=== PATIENT | male | born 1940 | race Caucasian/White ===

== ENCOUNTER 2017-06-20 19:37 | Inpatient (IN) | payer MEDICARE, MEDICAID ==
[~2017-06-20] VITALS: Ht 182.9 cm; Wt 72.7 kg
[~2017-06-20 19:37] MED LIST: AMI25T PO; ASPI-612 PO; ATEN-27 PO; BAC10T PO; DONE5TAB3 PO; FLUT16SP10; FURO-150 PO; GABA-532 PO; GLIP10TA11 PO; GLU850T PO; KEN0.1O TP; LITH300T5 PO; MECL12.5 PO; METO10TA3 PO; NITR0.4T48 SL; OMEP-84 PO; ROSU10TA PO; SENN1TAB9 PO; TRAZ50TA54 PO
[2017-06-20 20:15] LABS: BASOPHILS % (AUTO) 0.1 % (0-1); EOSINOPHILS % (AUTO) 0 % (0-6); HEMATOCRIT 36.8 % (42.0-52.0); HEMOGLOBIN 12.2 g/dl (14.0-17.9); LYMPHOCYTES # (AUTO) 0.5 X10'3 (1.1-4.8); LYMPHOCYTES % (AUTO) 8.2 % (21-51); MEAN CORPUSCULAR HEMOGLOBIN 27.1 PG (27.0-31.0); MEAN CORPUSCULAR HGB CONC 33.2 % (33.0-36.5); MEAN CORPUSCULAR VOLUME 81.5 FL (78-98); MEAN PLATELET VOLUME 8.4 FL (7.4-10.4); MONOCYTES # (AUTO) 0.4 X10'3 (0-0.9); MONOCYTES % (AUTO) 6.2 % (2-12); NEUTROPHILS # (AUTO) 5.1 X10'3 (1.8-7.7); NEUTROPHILS % (AUTO) 85.5 % (42-75); PLATELET COUNT 183 X10'3 (140-440); RED BLOOD COUNT 4.51 X10'6 (4.70-6.10); RED CELL DISTRIBUTION WIDTH 15.1 % (11.5-14.5)
[2017-06-20 20:30] LABS: ALANINE AMINOTRANSFERASE 34 U/L (12-78); ALBUMIN 3.5 G/DL (3.4-5.0); ALBUMIN/GLOBULIN RATIO 0.8 (1.1-1.5); ALKALINE PHOSPHATASE 254 IU/L (46-116); ANION GAP 15 (8-16); ASPARTATE AMINO TRANSFERASE 25 U/L (10-37); BILIRUBIN,TOTAL 0.5 MG/DL (0.1-1.0); BLOOD UREA NITROGEN 14 MG/DL (7-18); BUN/CREATININE RATIO 10.4 (5.4-32.0); CALCIUM 9.1 MG/DL (8.5-10.1); CHLORIDE 98 MMOL/L (99-107); CREATININE 1.35 MG/DL (0.60-1.10); GLUCOSE 288 MG/DL (70-104); POTASSIUM 4.4 MMOL/L (3.5-5.1); SODIUM 137 MMOL/L (135-145); TOTAL CARBON DIOXIDE 24.2 MMOL/L (24-32); TOTAL PROTEIN 8.1 G/DL (6.4-8.2); eGFR 51 ML/MIN
[2017-06-20] MEDS ORDERED: temazepam 15mg capsule PO PRN (21:00)
[2017-06-20] MEDS ORDERED: INSU100V9 SQ (23:39)
[2017-06-21] MEDS ORDERED: magnesium hydroxide 30ml (MOM) UD suspension PO PRN
[2017-06-21] MEDS ORDERED: acetaminophen 325mg tablet PO PRN ×2
[2017-06-21] MEDS ORDERED: mag hydrox/Alum hydrox/simeth 30ml oral suspension PO PRN
[2017-06-21] MEDS ORDERED: ondansetron/PF 4mg/2ml inj IV PRN
[2017-06-21] MEDS ORDERED: HYDROmorphone inj. 0.5 MG/0.5 ML DISP.SYRIN IV PRN
[2017-06-21] MEDS: normal saline 1000ml 1,000 ML IV SCH ×3 (00:21→19:28)
[2017-06-21] MEDS ORDERED: amitriptyline 25mg tablet PO SCH (00:25)
[2017-06-21] MEDS ORDERED: meclizine 12.5mg tablet PO PRN (00:25)
[2017-06-21] MEDS ORDERED: MESSAGE TO PHARMACY PO ONE (00:25)
[2017-06-21] MEDS ORDERED: dextrose ORAL solution 15 GM/59 ML bottle PO PRN ×2 (00:25)
[2017-06-21] MEDS ORDERED: nitroGLYCERIN 0.4mg SUBLingual tab SL SCH (00:25)
[2017-06-21] MEDS ORDERED: triamcinolone acet 0.1% cream 15gm TP PRN (00:25)
[2017-06-21] MEDS ORDERED: dextrose 50%-water 50ml dispensing syringe IV PRN ×2 (00:25)
[2017-06-21] MEDS ORDERED: furosemide 20MG tablet PO PRN (00:25)
[2017-06-21] MEDS ORDERED: glucagon, human recombinant 1mg kit SUBCUT PRN (00:25)
[2017-06-21] MEDS ORDERED: sennosides/docusate sodium tablet PO PRN (00:25)
[2017-06-21 05:53] LABS: BASOPHILS % (AUTO) 0.2 % (0-1); EOSINOPHILS % (AUTO) 0 % (0-6); HEMATOCRIT 33.9 % (42.0-52.0); HEMOGLOBIN 11.4 g/dl (14.0-17.9); LYMPHOCYTES # (AUTO) 0.8 X10'3 (1.1-4.8); LYMPHOCYTES % (AUTO) 17.5 % (21-51); MEAN CORPUSCULAR HEMOGLOBIN 27.4 PG (27.0-31.0); MEAN CORPUSCULAR HGB CONC 33.7 % (33.0-36.5); MEAN CORPUSCULAR VOLUME 81.3 FL (78-98); MEAN PLATELET VOLUME 8.1 FL (7.4-10.4); MONOCYTES # (AUTO) 0.5 X10'3 (0-0.9); NEUTROPHILS # (AUTO) 3.1 X10'3 (1.8-7.7); NEUTROPHILS % (AUTO) 70.3 % (42-75); PLATELET COUNT 146 X10'3 (140-440); RED BLOOD COUNT 4.16 X10'6 (4.70-6.10); RED CELL DISTRIBUTION WIDTH 14.4 % (11.5-14.5); WHITE BLOOD COUNT 4.4 X10'3 (4.5-11.0)
[2017-06-21 06:37] LABS: ALANINE AMINOTRANSFERASE 30 U/L (12-78); ALBUMIN 2.9 G/DL (3.4-5.0); ALBUMIN/GLOBULIN RATIO 0.7 (1.1-1.5); ALKALINE PHOSPHATASE 212 IU/L (46-116); ANION GAP 12 (8-16); ASPARTATE AMINO TRANSFERASE 24 U/L (10-37); BILIRUBIN,TOTAL 0.5 MG/DL (0.1-1.0); BLOOD UREA NITROGEN 17 MG/DL (7-18); BUN/CREATININE RATIO 14.3 (5.4-32.0); CALCIUM 8.4 MG/DL (8.5-10.1); CHLORIDE 101 MMOL/L (99-107); CREATININE 1.19 MG/DL (0.60-1.10); GLUCOSE 284 MG/DL (70-104); LIPASE 55 U/L (73-393); POTASSIUM 4.2 MMOL/L (3.5-5.1); SODIUM 136 MMOL/L (135-145); TOTAL CARBON DIOXIDE 22.9 MMOL/L (24-32); eGFR 59 ML/MIN
[2017-06-21] MEDS: pantoprazole 40mg Tablet.DR PO SCH (07:30)
[2017-06-21 07:36] LABS: HEMOGLOBIN A1C 8.3 % (4.5-6.2)
[2017-06-21] MEDS: baclofen 10mg tablet PO SCH ×2 (07:51→21:53)
[2017-06-21] MEDS: lithium carbonate 150mg capsule PO SCH ×3 (07:52→21:53)
[2017-06-21] MEDS: atorvastatin 20mg tablet PO SCH (07:52)
[2017-06-21] MEDS: gabapentin 300mg capsule PO SCH ×3 (07:52→21:53)
[2017-06-21] MEDS: atenolol 25mg tablet PO SCH (07:53)
[2017-06-21] MEDS: aspirin 81mg tab.chew PO SCH (07:53)
[2017-06-21] MEDS: metoclopramide 10mg tablet PO SCH ×4 (07:53→21:53)
[2017-06-21] MEDS ORDERED: enoxaparin 40mg/0.4ml syringe SUBCUT SCH (08:00)
[2017-06-21] MEDS ORDERED: non-formulary drug (Omeprazole* (Prilosec*) 20 MG) PO SCH (08:00)
[2017-06-21] MEDS ORDERED: ROSUVASTATIN CALCIUM 10 MG PO SCH (08:00)
[2017-06-21] MEDS: piperacillin/tazo 3.375gm/50ml 50 ML IV SCH ×3 (08:03→19:28)
[2017-06-21] MEDS ORDERED: hydrALAZINE 20mg/ml inj. IV PRN (08:35)
[2017-06-21] MEDS: insulin Lispro (HumaLOG) vial - multi-dose SQ SCH (13:54)
[2017-06-21 18:04] VITALS: BP 140/62
[2017-06-21 19:00] VITALS: BP 144/83
[2017-06-21] MEDS: traZODone 50mg tablet PO SCH (21:53)
[2017-06-21] MEDS ORDERED: insulin glargine (Lantus) pen - multi-dose SQ ONE (22:48)
[2017-06-21] MEDS ORDERED: insulin regular, human vial - multi-dose ONE (22:48)
[2017-06-21] MEDS: insulin glargine (Lantus) pen - multi-dose SQ SCH (23:10)
[2017-06-22] VITALS (17 sets, daily range): BP systolic 103–165; BP diastolic 40–70
[2017-06-22] MEDS: piperacillin/tazo 3.375gm/50ml 50 ML IV SCH ×4 (02:33→21:33)
[2017-06-22] MEDS: normal saline 1000ml 1,000 ML IV SCH ×2 (06:02→15:58)
[2017-06-22 07:16] LABS: BASOPHILS % (AUTO) 0.4 % (0-1); EOSINOPHILS % (AUTO) 0.7 % (0-6); HEMATOCRIT 32.3 % (42.0-52.0); HEMOGLOBIN 10.8 g/dl (14.0-17.9); LYMPHOCYTES # (AUTO) 0.8 X10'3 (1.1-4.8); LYMPHOCYTES % (AUTO) 29.2 % (21-51); MEAN CORPUSCULAR HEMOGLOBIN 27.1 PG (27.0-31.0); MEAN CORPUSCULAR HGB CONC 33.3 % (33.0-36.5); MEAN CORPUSCULAR VOLUME 81.4 FL (78-98); MONOCYTES # (AUTO) 0.3 X10'3 (0-0.9); MONOCYTES % (AUTO) 10.5 % (2-12); NEUTROPHILS # (AUTO) 1.7 X10'3 (1.8-7.7); NEUTROPHILS % (AUTO) 59.2 % (42-75); PLATELET COUNT 137 X10'3 (140-440); RED BLOOD COUNT 3.97 X10'6 (4.70-6.10); RED CELL DISTRIBUTION WIDTH 14.1 % (11.5-14.5); WHITE BLOOD COUNT 2.9 X10'3 (4.5-11.0)
[2017-06-22] MEDS: pantoprazole 40mg Tablet.DR PO SCH (07:24)
[2017-06-22] MEDS: baclofen 10mg tablet PO SCH ×2 (07:24→21:34)
[2017-06-22] MEDS: atorvastatin 20mg tablet PO SCH (07:24)
[2017-06-22] MEDS: aspirin 81mg tab.chew PO SCH (07:25)
[2017-06-22] MEDS: lithium carbonate 150mg capsule PO SCH ×3 (07:25→21:35)
[2017-06-22] MEDS: gabapentin 300mg capsule PO SCH ×3 (07:25→21:34)
[2017-06-22] MEDS: metoclopramide 10mg tablet PO SCH ×4 (07:25→21:34)
[2017-06-22 07:36] LABS: ALANINE AMINOTRANSFERASE 26 U/L (12-78); ALBUMIN 2.5 G/DL (3.4-5.0); ALBUMIN/GLOBULIN RATIO 0.6 (1.1-1.5); ALKALINE PHOSPHATASE 182 IU/L (46-116); ANION GAP 12 (8-16); ASPARTATE AMINO TRANSFERASE 31 U/L (10-37); BILIRUBIN,TOTAL 0.4 MG/DL (0.1-1.0); BLOOD UREA NITROGEN 19 MG/DL (7-18); BUN/CREATININE RATIO 16.1 (5.4-32.0); CALCIUM 8.1 MG/DL (8.5-10.1); CHLORIDE 104 MMOL/L (99-107); CREATININE 1.18 MG/DL (0.60-1.10); GLUCOSE 242 MG/DL (70-104); POTASSIUM 3.8 MMOL/L (3.5-5.1); SODIUM 139 MMOL/L (135-145); TOTAL CARBON DIOXIDE 23.2 MMOL/L (24-32); TOTAL PROTEIN 6.4 G/DL (6.4-8.2); eGFR 60 ML/MIN
[2017-06-22] MEDS: atenolol 25mg tablet PO SCH (07:38)
[2017-06-22] MEDS: insulin Lispro (HumaLOG) vial - multi-dose SQ SCH ×2 (10:18→12:56)
[2017-06-22 11:31] LABS: PLATELET ESTIMATE DECREASED; POLYCHROMASIA FEW; TOTAL CELLS COUNTED 100
[2017-06-22 11:32] LABS: ANISOCYTOSIS FEW; TEAR DROP CELLS 1+
[2017-06-22 11:33] LABS: ELLIPTOCYTES FEW; SPHEROCYTES FEW
[2017-06-22 11:34] LABS: SMUDGE CELLS FEW
[2017-06-22] MEDS ORDERED: fentaNYL/PF 50MCG/1 ML 2ML syringe ONE (15:22)
[2017-06-22] MEDS ORDERED: MIDAZolam 5mg/ml 2ml vial ONE (15:22)
[2017-06-22] MEDS ORDERED: meperidine/PF 100mg/ml syringe ONE (15:22)
[2017-06-22] MEDS ORDERED: levoFLOXACIN-Levaquin 500mg/D5 100 ML IV ONE ×2 (15:23→15:24)
[2017-06-22] MEDS ORDERED: LIDOcaine Viscous 15ml cup ONE (15:23)
[2017-06-22] MEDS ORDERED: glucagon, human recombinant 1mg kit ONE (15:23)
[2017-06-22] MEDS ORDERED: diphenhydrAMINE 50 mg/ml inj ONE (15:23)
[2017-06-22] MEDS ORDERED: iohexol 300 MG/1 ML 50ml polymer ONE (15:24)
[2017-06-22] MEDS: lactobacillus rhamnosus 10,000 MMU CELLS/CAPSULE PO SCH (21:34)
[2017-06-22] MEDS: traZODone 50mg tablet PO SCH (21:34)
[2017-06-22] MEDS: insulin glargine (Lantus) pen - multi-dose SQ SCH (21:39)
[2017-06-23] MEDS: normal saline 1000ml 1,000 ML IV SCH ×2 (02:37→11:58)
[2017-06-23] MEDS: piperacillin/tazo 3.375gm/50ml 50 ML IV SCH ×3 (02:37→14:52)
[2017-06-23 05:36] LABS: BASOPHILS % (AUTO) 0.3 % (0-1); EOSINOPHILS % (AUTO) 1.5 % (0-6); HEMATOCRIT 32.7 % (42.0-52.0); HEMOGLOBIN 10.9 g/dl (14.0-17.9); LYMPHOCYTES % (AUTO) 33.4 % (21-51); MEAN CORPUSCULAR HGB CONC 33.5 % (33.0-36.5); MEAN CORPUSCULAR VOLUME 80.7 FL (78-98); MEAN PLATELET VOLUME 8.1 FL (7.4-10.4); MONOCYTES # (AUTO) 0.3 X10'3 (0-0.9); MONOCYTES % (AUTO) 8.3 % (2-12); NEUTROPHILS # (AUTO) 1.8 X10'3 (1.8-7.7); NEUTROPHILS % (AUTO) 56.5 % (42-75); PLATELET COUNT 123 X10'3 (140-440); RED BLOOD COUNT 4.06 X10'6 (4.70-6.10); RED CELL DISTRIBUTION WIDTH 14.3 % (11.5-14.5); WHITE BLOOD COUNT 3.1 X10'3 (4.5-11.0)
[2017-06-23 05:55] LABS: ALANINE AMINOTRANSFERASE 23 U/L (12-78); ALBUMIN 2.4 G/DL (3.4-5.0); ALBUMIN/GLOBULIN RATIO 0.6 (1.1-1.5); ALKALINE PHOSPHATASE 172 IU/L (46-116); ANION GAP 10 (8-16); ASPARTATE AMINO TRANSFERASE 29 U/L (10-37); BILIRUBIN,TOTAL 0.4 MG/DL (0.1-1.0); BLOOD UREA NITROGEN 17 MG/DL (7-18); BUN/CREATININE RATIO 12.5 (5.4-32.0); CALCIUM 8.2 MG/DL (8.5-10.1); CHLORIDE 108 MMOL/L (99-107); CREATININE 1.36 MG/DL (0.60-1.10); GLUCOSE 204 MG/DL (70-104); POTASSIUM 3.6 MMOL/L (3.5-5.1); SODIUM 142 MMOL/L (135-145); TOTAL CARBON DIOXIDE 24.4 MMOL/L (24-32); TOTAL PROTEIN 6.4 G/DL (6.4-8.2); eGFR 51 ML/MIN
[2017-06-23 07:00] VITALS: BP 125/42
[2017-06-23] MEDS: lithium carbonate 150mg capsule PO SCH ×2 (09:03→13:49)
[2017-06-23] MEDS: atenolol 25mg tablet PO SCH (09:04)
[2017-06-23] MEDS: lactobacillus rhamnosus 10,000 MMU CELLS/CAPSULE PO SCH (09:04)
[2017-06-23] MEDS: gabapentin 300mg capsule PO SCH ×2 (09:06→13:49)
[2017-06-23] MEDS: atorvastatin 20mg tablet PO SCH (09:07)
[2017-06-23] MEDS: metoclopramide 10mg tablet PO SCH ×3 (09:08→17:46)
[2017-06-23] MEDS: aspirin 81mg tab.chew PO SCH (09:09)
[2017-06-23] MEDS: pantoprazole 40mg Tablet.DR PO SCH (09:10)
[2017-06-23] MEDS: baclofen 10mg tablet PO SCH (09:10)
[2017-06-23] MEDS: HYDROcodone/acetaminophen 5mg/325mg tablet PO PRN ×2 (09:14→15:19)
[2017-06-23] MEDS: insulin Lispro (HumaLOG) vial - multi-dose SQ SCH ×2 (09:23→13:54)
[2017-06-23 10:55] VITALS: BP 132/44
[2017-06-23] MEDS ORDERED: LACT1CAP26 PO (12:51)
[2017-06-23 14:00] VITALS: BP 143/56
[2017-06-23] MEDS ORDERED: atenolol 50mg tablet PO SCH (14:48)
== END 2017-06-23 18:49 | disposition home health service (06) | DRG 446 ==
LOC: ER 19:37 → ED HOLD 23:58 → SUR 3N 06-21 17:58 → OBSVTOIN 06-22 10:00
PROVIDERS: ADMIT Hospitalist; ATTEND Family Medicine
PROC: 0DJ08ZZ Inspection of Upper Intestinal Tract, Via Natural or Artificial Opening Endoscopic (ICD-10-PCS; principal; 2017-06-22)
DX: K80.50 Calculus of bile duct without cholangitis or cholecystitis without obstruction (principal); E11.9 Type 2 diabetes mellitus without complications; F03.90 Unspecified dementia, unspecified severity, without behavioral disturbance, psychotic disturbance, mood disturbance, and anxiety; E78.00 Pure hypercholesterolemia, unspecified; I10 Essential (primary) hypertension; F31.9 Bipolar disorder, unspecified; E78.5 Hyperlipidemia, unspecified; I25.10 Atherosclerotic heart disease of native coronary artery without angina pectoris; K21.9 Gastro-esophageal reflux disease without esophagitis; G89.29 Other chronic pain; R06.02 Shortness of breath; Z60.2 Problems related to living alone; Z66 Do not resuscitate; I25.2 Old myocardial infarction; Z90.49 Acquired absence of other specified parts of digestive tract; Z95.1 Presence of aortocoronary bypass graft; Z79.4 Long term (current) use of insulin; Z79.84 Long term (current) use of oral hypoglycemic drugs
CPT/HCPCS: 36415; 71045; 74176; 74181; 76001; 76700; 80053; 82948; 83036; 83605; 83690; 83880; 84484; 85025; 87040; 93005; 97110; 97116; 97162; G0378; G0500; J1200; J1610; J1650; J1815; J1956; J2175; J2250; J2543; J3010; J7030; J8597; Q9967

== ENCOUNTER 2017-12-12 04:59 | Emergency (ER) | payer MEDICARE, MEDICAID ==
[~2017-12-12] VITALS: Ht 182.9 cm; Wt 72.4 kg
[~2017-12-12 04:59] MED LIST changes: -DONE5TAB3 PO; -FLUT16SP10; +INSU100V9 SQ; +LACT1CAP26 PO
[2017-12-12] MEDS ORDERED: potassium Cl 20 mEq SR tablet PO STA (05:19)
[2017-12-12] MEDS ORDERED: lactulose 20gm/30ml cup PO ONE (05:20)
[2017-12-12] MEDS ORDERED: magnesium hydroxide 30ml (MOM) UD suspension PO ONE (05:20)
[2017-12-12] MEDS ORDERED: normal saline 1000ML IV soln IVB ONE (05:20)
[2017-12-12] MEDS ORDERED: POLY255P2 PO (05:27)
[2017-12-12 06:01] LABS: BASOPHILS % (AUTO) 0.4 % (0-1); EOSINOPHILS # (AUTO) 0.1 X10'3 (0-0.9); EOSINOPHILS % (AUTO) 2.2 % (0-6); HEMATOCRIT 31.9 % (42.0-52.0); HEMOGLOBIN 10.1 g/dl (14.0-17.9); LYMPHOCYTES # (AUTO) 0.7 X10'3 (1.1-4.8); LYMPHOCYTES % (AUTO) 14.8 % (21-51); MEAN CORPUSCULAR HEMOGLOBIN 22.8 PG (27.0-31.0); MEAN CORPUSCULAR HGB CONC 31.7 % (33.0-36.5); MEAN CORPUSCULAR VOLUME 71.9 FL (78-98); MEAN PLATELET VOLUME 8.3 FL (7.4-10.4); MONOCYTES # (AUTO) 0.2 X10'3 (0-0.9); MONOCYTES % (AUTO) 5.1 % (2-12); NEUTROPHILS # (AUTO) 3.7 X10'3 (1.8-7.7); NEUTROPHILS % (AUTO) 77.5 % (42-75); PLATELET COUNT 224 X10'3 (140-440); RED BLOOD COUNT 4.44 X10'6 (4.70-6.10); RED CELL DISTRIBUTION WIDTH 17.6 % (11.5-14.5); WHITE BLOOD COUNT 4.8 X10'3 (4.5-11.0)
[2017-12-12 06:29] VITALS: BP 131/51
[2017-12-12 07:00] LABS: ALANINE AMINOTRANSFERASE 59 U/L (12-78); ALBUMIN 3.2 G/DL (3.4-5.0); ALBUMIN/GLOBULIN RATIO 0.8 (1.1-1.5); ALKALINE PHOSPHATASE 289 IU/L (46-116); ANION GAP 8 (8-16); ASPARTATE AMINO TRANSFERASE 104 U/L (10-37); BILIRUBIN,TOTAL 0.8 MG/DL (0.1-1.0); BLOOD UREA NITROGEN 21 MG/DL (7-18); BUN/CREATININE RATIO 14.3 (5.4-32.0); CALCIUM 8.6 MG/DL (8.5-10.1); CHLORIDE 106 MMOL/L (99-107); CREATININE 1.47 MG/DL (0.60-1.10); GLUCOSE 133 MG/DL (70-104); POTASSIUM 4.3 MMOL/L (3.5-5.1); SODIUM 140 MMOL/L (135-145); TOTAL CARBON DIOXIDE 25.7 MMOL/L (24-32); TOTAL PROTEIN 7.3 G/DL (6.4-8.2); eGFR 46 ML/MIN
== END 2017-12-12 08:13 | disposition home or self-care (01) ==
LOC: ER 05:00
DX: K59.00 Constipation, unspecified (principal); R10.84 Generalized abdominal pain; R10.33 Periumbilical pain; I25.10 Atherosclerotic heart disease of native coronary artery without angina pectoris; E78.00 Pure hypercholesterolemia, unspecified; I10 Essential (primary) hypertension; I25.2 Old myocardial infarction; K21.9 Gastro-esophageal reflux disease without esophagitis; E11.9 Type 2 diabetes mellitus without complications; G89.29 Other chronic pain; Z90.49 Acquired absence of other specified parts of digestive tract; Z98.890 Other specified postprocedural states; Z95.1 Presence of aortocoronary bypass graft; Z79.82 Long term (current) use of aspirin; Z79.899 Other long term (current) drug therapy
CPT/HCPCS: 36415; 80053; 85025; 99284; J7030

== ENCOUNTER 2020-10-24 20:56 | Emergency (ER) | payer MEDICARE, MEDICAID ==
[~2020-10-24] VITALS: Ht 177.8 cm; Wt 84.1 kg
[~2020-10-24 20:56] MED LIST changes: +POLY255P19 PO; -ROSU10TA PO; +ROSU10TA2 PO
[2020-10-24 21:20] VITALS: BP 139/59
[2020-10-26] MEDS ORDERED: FLO0.4C (22:57)
== END 2020-10-24 23:09 | disposition home or self-care (01) ==
LOC: ER 20:56
DX: F41.9 Anxiety disorder, unspecified (principal); I25.10 Atherosclerotic heart disease of native coronary artery without angina pectoris; E78.00 Pure hypercholesterolemia, unspecified; I10 Essential (primary) hypertension; I25.2 Old myocardial infarction; K21.9 Gastro-esophageal reflux disease without esophagitis; E11.9 Type 2 diabetes mellitus without complications; G89.29 Other chronic pain; F31.9 Bipolar disorder, unspecified; Z90.49 Acquired absence of other specified parts of digestive tract; Z98.890 Other specified postprocedural states; Z60.2 Problems related to living alone; Z79.82 Long term (current) use of aspirin; Z79.4 Long term (current) use of insulin; Z79.899 Other long term (current) drug therapy
CPT/HCPCS: 99283

== ENCOUNTER 2020-10-26 21:13 | Inpatient (IN) | payer MEDICARE, MEDICAID ==
[~2020-10-26] VITALS: Ht 182.9 cm; Wt 90.9 kg
[2020-10-26] MEDS ORDERED: LITH450T2 PO (22:57)
[2020-10-26] MEDS ORDERED: GABA-530 PO (22:57)
[2020-10-26] MEDS ORDERED: CARV3.122 PO (22:57)
[2020-10-26] MEDS ORDERED: HYDR-3686 PO (22:57)
[2020-10-26] MEDS ORDERED: FLO0.4C PO (22:57)
[2020-10-26] MEDS ORDERED: LITH300C PO (22:57)
[2020-10-26] MEDS ORDERED: FURO20TA4 PO (22:57)
[2020-10-26] MEDS ORDERED: SITA100T15 PO (22:57)
[2020-10-26] MEDS ORDERED: ATOR10TA70 PO (22:57)
[2020-10-26] MEDS ORDERED: DOCU-345 PO (22:57)
[2020-10-26] MEDS ORDERED: MECL-159 PO (22:57)
[2020-10-26] MEDS ORDERED: LIT300C PO (23:11)
--- NOTE | 2020-10-26 23:12 | NUR ---
Phone number for needle process felt goods supervisorStar, is
[2020-10-26 23:29] LABS: EOSINOPHILS # (AUTO) 0.3 X10'3 (0-0.9); HEMOGLOBIN 10.8 g/dl (14.0-17.9); LYMPHOCYTES # (AUTO) 1.2 X10'3 (1.1-4.8); MEAN CORPUSCULAR VOLUME 80.8 FL (78-98); WHITE BLOOD COUNT 5.4 X10'3 (4.5-11.0)
[2020-10-26 23:30] LABS: BASOPHILS % (AUTO) 0.3 % (0-1); EOSINOPHILS % (AUTO) 5.4 % (0-6); HEMATOCRIT 34.5 % (42.0-52.0); LYMPHOCYTES % (AUTO) 23.3 % (21-51); MEAN CORPUSCULAR HEMOGLOBIN 25.4 PG (27.0-31.0); MEAN CORPUSCULAR HGB CONC 31.4 g/dL (33.0-36.5); MEAN PLATELET VOLUME 8.5 FL (7.4-10.4); MONOCYTES # (AUTO) 0.5 X10'3 (0-0.9); MONOCYTES % (AUTO) 8.9 % (2-12); NEUTROPHILS # (AUTO) 3.3 X10'3 (1.8-7.7); NEUTROPHILS % (AUTO) 62.1 % (42-75); PLATELET COUNT 152 X10'3 (140-440); RED BLOOD COUNT 4.27 X10'6 (4.70-6.10); RED CELL DISTRIBUTION WIDTH 17.1 % (11.5-14.5)
[2020-10-26 23:39] LABS: ALANINE AMINOTRANSFERASE 14 U/L (12-78); ALBUMIN/GLOBULIN RATIO 0.8 (1.1-1.5); ALKALINE PHOSPHATASE 170 IU/L (46-116); ANION GAP 4 (8-16); ASPARTATE AMINO TRANSFERASE 17 U/L (10-37); BILIRUBIN,TOTAL 0.4 MG/DL (0.1-1.0); BLOOD UREA NITROGEN 23 MG/DL (7-18); BUN/CREATININE RATIO 16.2 (5.4-32.0); CALCIUM 8.5 MG/DL (8.5-10.1); CHLORIDE 106 MMOL/L (99-107); CREATININE 1.42 MG/DL (0.60-1.10); GLUCOSE 125 MG/DL (70-104); SODIUM 139 MMOL/L (135-145); TOTAL CARBON DIOXIDE 28.9 MMOL/L (24-32); TOTAL PROTEIN 6.9 G/DL (6.4-8.2); eGFR 48 ML/MIN
[2020-10-26 23:40] LABS: POTASSIUM 4.5 MMOL/L (3.5-5.1)
[2020-10-26 23:48] LABS: ANISOCYTOSIS 1+; BURR CELLS 1+; ELLIPTOCYTES FEW; PLATELET ESTIMATE NORMAL; TEAR DROP CELLS FEW
[2020-10-27 00:37] LABS: CLARITY,URINE CLEAR (Clear); COLOR,URINE YELLOW (Yellow); GLUCOSE, URINE NEGATIVE (Neg); KETONES,URINE NEGATIVE (Neg); LEUKOCYTE ESTERASE ,URINE NEGATIVE (Neg); NITRITES, URINE NEGATIVE (Neg); OCCULT BLOOD,URINE NEGATIVE (Neg); PROTEIN,URINE NEGATIVE (Neg)
[2020-10-27 00:38] LABS: UA COLLECTION TYPE OTHER
[2020-10-27] MEDS ORDERED: potassium Cl 40MEQ/1/2NS 520ml 520 ML IV PRN ×2 (03:00)
[2020-10-27] MEDS ORDERED: ondansetron/PF 4mg/2ml inj IV PRN (03:00)
[2020-10-27] MEDS ORDERED: potassium Cl 20 mEq SR tablet PO PRN ×2 (03:00)
[2020-10-27] MEDS ORDERED: mag hydrox/Alum hydrox/simeth 30ml oral suspension PO PRN (03:00)
[2020-10-27] MEDS ORDERED: dextrose ORAL solution 15 GM/59 ML bottle PO PRN ×2 (03:10)
[2020-10-27] MEDS ORDERED: dextrose 50%-water 50ml dispensing syringe IV PRN ×2 (03:10)
[2020-10-27] MEDS ORDERED: glucagon, human recombinant 1mg kit SUBCUT PRN (03:10)
[2020-10-27] MEDS ORDERED: MESSAGE TO PHARMACY PO ONE (03:10)
[2020-10-27 04:25] VITALS: BP 118/49
[2020-10-27 04:48] LABS: HEMOGLOBIN A1C 7.3 % (4.5-6.2)
[2020-10-27] MEDS ORDERED: aspirin 81mg tablet.DR PO SCH (08:00)
[2020-10-27] MEDS ORDERED: LITHIUM CARBONATE PO SCH (08:00)
[2020-10-27] MEDS: heparin, porcine 5000 units/ml vial SQ SCH ×2 (08:00→20:00)
[2020-10-27] MEDS ORDERED: atenolol 25mg tablet PO SCH (08:00)
[2020-10-27] MEDS: K and/or MAG REPLACEMENT MC SCH ×3 (08:00→20:00)
[2020-10-27 08:05] VITALS: BP 109/78
[2020-10-27] MEDS: atorvastatin 10mg tablet PO SCH (08:43)
[2020-10-27] MEDS: furosemide 20MG tablet PO SCH (08:43)
[2020-10-27] MEDS: docusate sod 100mg capsule PO SCH ×2 (08:43→21:47)
--- NOTE | 2020-10-27 08:49 | NUR ---
2 RN skin assessment completed upon patient's arrival to unit with Tommy AGUIRRE. Patient's skin was found to be clear aside from a small scab to the left lower arm and diffuse bruising to both UE. Immediately afterwards I answered another patient's call light, and was unable to have Tommy AGUIRRE sign off on the 2 RN skin check before she left. Addendum: 10/27/20 at 0852 by Terence Rodgers RN Amended: Links added.
--- NOTE | 2020-10-27 08:52 | NUR ---
Problems reprioritized. Patient report given, questions answered & plan of care reviewed with Viridiana AGUIRRE.
[2020-10-27] MEDS ORDERED: aspirin 81mg tablet.DR PO ONE (09:02)
--- NOTE | 2020-10-27 09:21 | NUR ---
Noted pt with A1c 7.3%, well controlled for age, DM education not warranted at this time. Will continue to follow. Addendum: 10/27/20 at [address] Amended: Links added.
[2020-10-27] MEDS ORDERED: heparin, porcine 5000 units/ml vial SQ ONE ×2 (10:10→21:50)
[2020-10-27] MEDS ORDERED: magnesium Cl slow-release 64mg tablet PO PRN (10:40)
[2020-10-27] MEDS ORDERED: magnesium 4gm in 100ml NS 100 ML IV PRN (10:40)
[2020-10-27 11:00] VITALS: BP 136/40
[2020-10-27] MEDS: pneumococcal 23-VAL P-sac vacc 25 mcg/0.5ml vial IMVAC ONE ×2 (13:55→17:23)
[2020-10-27] MEDS ORDERED: PRAZ1CAP5 PO (13:59)
[2020-10-27] MEDS ORDERED: NAPR-996 PO (13:59)
--- NOTE | 2020-10-27 15:08 | NUR ---
PAGER ID: [phone] MESSAGE: [id number] [place]. Can I put a sitter on him for being Compulsive, jumping out of bed, confused. Viridiana 0083
--- NOTE | 2020-10-27 15:09 | NUR ---
DM consult: Patient's A1c has already been addressed, see below. Noted pt with A1c 7.3%, well controlled for age, DM education not warranted at this time. Will continue to follow. Addendum: 10/27/20 at [address] Amended: Links added.
--- NOTE | 2020-10-27 17:26 | NUR ---
Patient refused pneumonia vax, states he had it last year and the flu vax as well.
--- NOTE | 2020-10-27 18:23 | NUR ---
Report given to NOC shift.
[2020-10-27 19:00] VITALS: BP 148/46
[2020-10-27] MEDS ORDERED: lithium carbonate 300mg SR tablet (LithoBID) PO SCH (21:00)
[2020-10-27] MEDS: carVEDilol 3.125mg tablet PO SCH (21:47)
[2020-10-27] MEDS: tamsulosin 0.4mg capsule PO SCH (21:47)
[2020-10-27] MEDS: prazosin 1mg capsule PO SCH (21:47)
[2020-10-28] VITALS: BP 130/62
[2020-10-28 06:33] LABS: BASOPHILS # (AUTO) 0.1 X10'3 (0-0.2); BASOPHILS % (AUTO) 0.3 % (0-1); EOSINOPHILS % (AUTO) 0 % (0-6); HEMATOCRIT 35.2 % (42.0-52.0); HEMOGLOBIN 11.5 g/dl (14.0-17.9); LYMPHOCYTES # (AUTO) 0.2 X10'3 (1.1-4.8); LYMPHOCYTES % (AUTO) 1.3 % (21-51); MEAN CORPUSCULAR HEMOGLOBIN 29.8 PG (27.0-31.0); MEAN CORPUSCULAR HGB CONC 32.8 g/dL (33.0-36.5); MEAN PLATELET VOLUME 10.2 FL (7.4-10.4); MONOCYTES # (AUTO) 0.2 X10'3 (0-0.9); MONOCYTES % (AUTO) 1.4 % (2-12); NEUTROPHILS # (AUTO) 15.1 X10'3 (1.8-7.7); PLATELET COUNT 169 X10'3 (140-440); RED BLOOD COUNT 3.87 X10'6 (4.70-6.10); RED CELL DISTRIBUTION WIDTH 15.9 % (11.5-14.5); WHITE BLOOD COUNT 15.6 X10'3 (4.5-11.0)
--- NOTE | 2020-10-28 06:35 | NUR ---
Problems reprioritized. Patient report given, questions answered & plan of care reviewed with Rosetta AGUIRRE. Addendum: 10/28/20 at 0636 by Ayleen Zazueta RN Amended: Links added.
[2020-10-28 06:43] LABS: ALANINE AMINOTRANSFERASE 37 U/L (12-78); ALBUMIN 2.1 G/DL (3.4-5.0); ALBUMIN/GLOBULIN RATIO 0.4 (1.1-1.5); ALKALINE PHOSPHATASE 162 IU/L (46-116); ANION GAP 5 (8-16); ASPARTATE AMINO TRANSFERASE 30 U/L (10-37); BILIRUBIN,TOTAL 0.3 MG/DL (0.1-1.0); BLOOD UREA NITROGEN 27 MG/DL (7-18); BUN/CREATININE RATIO 22.9 (5.4-32.0); CALCIUM 7.8 MG/DL (8.5-10.1); CHLORIDE 100 MMOL/L (99-107); CREATININE 1.18 MG/DL (0.60-1.10); GLUCOSE 158 MG/DL (70-104); MAGNESIUM 2.1 MG/DL (1.5-2.4); PHOSPHORUS 3.9 MG/DL (2.3-4.5); POTASSIUM 5.4 MMOL/L (3.5-5.1); SODIUM 135 MMOL/L (135-145); TOTAL CARBON DIOXIDE 29.9 MMOL/L (24-32); TOTAL PROTEIN 6.9 G/DL (6.4-8.2); eGFR 59 ML/MIN
--- NOTE | 2020-10-28 06:52 | NUR ---
Problems reprioritized. Patient report given, questions answered & plan of care reviewed with TIMOTHY Abbasi.
[2020-10-28] MEDS: aspirin 81mg tablet.DR PO SCH (08:00)
[2020-10-28] MEDS: K and/or MAG REPLACEMENT MC SCH ×2 (08:00→20:00)
[2020-10-28 10:29] VITALS: BP 112/36
[2020-10-28] MEDS: carVEDilol 3.125mg tablet PO SCH ×2 (10:30→20:19)
[2020-10-28] MEDS: tamsulosin 0.4mg capsule PO SCH (10:30)
[2020-10-28] MEDS: atorvastatin 10mg tablet PO SCH (10:30)
[2020-10-28] MEDS: furosemide 20MG tablet PO SCH (10:30)
[2020-10-28] MEDS: docusate sod 100mg capsule PO SCH ×2 (10:30→20:19)
[2020-10-28] MEDS: heparin, porcine 5000 units/ml vial SQ SCH ×2 (13:21→20:19)
[2020-10-28] MEDS: acetaminophen 325mg tablet PO PRN (13:52)
[2020-10-28] MEDS: lithium carbonate 150mg capsule PO SCH ×3 (13:53→21:13)
[2020-10-28] MEDS ORDERED: PERFLUTREN PROTEIN-A MICROSPHR (Optison) 0.22 MG/ML 3ML VIAL IV ONE (14:20)
--- NOTE | 2020-10-28 15:01 | NUR ---
PAGER ID: [phone] MESSAGE: [id number]: [place]: May pt have pain meds, only has Tylenol. Reports severe pain to back. Tylenol had no effect -park [phone]
--- NOTE | 2020-10-28 16:56 | NUR ---
PAGER ID: [phone] MESSAGE: [place] 58B- Pt unable to sit still for MRI. It was not done. Thank you. Jazmyne quiros [facility] [id number]
--- NOTE | 2020-10-28 17:03 | NUR ---
PAGER ID: [phone] MESSAGE: [id number]: [place]: Pt unable to complete MRI scan, pt cannot stay still. -park [phone]
--- NOTE | 2020-10-28 17:08 | NUR ---
New orders from Maureen for 1mg ativan IV ONCE prior to MRI scan
[2020-10-28] MEDS ORDERED: LORazepam 2 mg/ml vial IV ONE (17:10)
[2020-10-28 18:00] VITALS: BP 144/75
--- NOTE | 2020-10-28 18:20 | NUR ---
Patient in room [facility] 358B. I have received report from TIMOTHY Sargent and had the opportunity to ask questions and assume patient care.
--- NOTE | 2020-10-28 18:29 | NUR ---
Problems reprioritized. Patient report given, questions answered & plan of care reviewed with TIMOTHY George.
[2020-10-28] MEDS: prazosin 1mg capsule PO SCH (20:19)
[2020-10-29] MEDS ORDERED: AMIT10TA6 PO (01:43)
[2020-10-29] MEDS ORDERED: LORazepam 2 mg/ml vial IV ONE ×2 (01:55)
--- NOTE | 2020-10-29 06:37 | NUR ---
Problems reprioritized. Patient report given, questions answered & plan of care reviewed with TIMOTHY Kemp.
[2020-10-29] MEDS: K and/or MAG REPLACEMENT MC SCH ×2 (08:00→20:00)
[2020-10-29 11:10] LABS: BASOPHILS % (AUTO) 0.5 % (0-1); EOSINOPHILS # (AUTO) 0.2 X10'3 (0-0.9); EOSINOPHILS % (AUTO) 3.4 % (0-6); HEMATOCRIT 37.2 % (42.0-52.0); HEMOGLOBIN 11.6 g/dl (14.0-17.9); LYMPHOCYTES # (AUTO) 1.3 X10'3 (1.1-4.8); LYMPHOCYTES % (AUTO) 23.2 % (21-51); MEAN CORPUSCULAR HEMOGLOBIN 24.9 PG (27.0-31.0); MEAN CORPUSCULAR HGB CONC 31.3 g/dL (33.0-36.5); MEAN CORPUSCULAR VOLUME 79.6 FL (78-98); MONOCYTES # (AUTO) 0.4 X10'3 (0-0.9); MONOCYTES % (AUTO) 6.8 % (2-12); NEUTROPHILS # (AUTO) 3.8 X10'3 (1.8-7.7); NEUTROPHILS % (AUTO) 66.1 % (42-75); PLATELET COUNT 204 X10'3 (140-440); RED BLOOD COUNT 4.67 X10'6 (4.70-6.10); RED CELL DISTRIBUTION WIDTH 16.9 % (11.5-14.5); WHITE BLOOD COUNT 5.7 X10'3 (4.5-11.0)
[2020-10-29 11:26] LABS: ALANINE AMINOTRANSFERASE 19 U/L (12-78); ALBUMIN 3.3 G/DL (3.4-5.0); ALBUMIN/GLOBULIN RATIO 0.8 (1.1-1.5); ALKALINE PHOSPHATASE 174 IU/L (46-116); ANION GAP 10 (8-16); ASPARTATE AMINO TRANSFERASE 29 U/L (10-37); BILIRUBIN,TOTAL 0.5 MG/DL (0.1-1.0); BLOOD UREA NITROGEN 19 MG/DL (7-18); BUN/CREATININE RATIO 14.3 (5.4-32.0); CALCIUM 8.7 MG/DL (8.5-10.1); CHLORIDE 104 MMOL/L (99-107); CREATININE 1.33 MG/DL (0.60-1.10); GLUCOSE 140 MG/DL (70-104); MAGNESIUM 2.2 MG/DL (1.5-2.4); PHOSPHORUS 3.2 MG/DL (2.3-4.5); SODIUM 141 MMOL/L (135-145); TOTAL PROTEIN 7.5 G/DL (6.4-8.2); eGFR 52 ML/MIN
[2020-10-29] MEDS: docusate sod 100mg capsule PO SCH ×2 (11:27→20:38)
[2020-10-29] MEDS: heparin, porcine 5000 units/ml vial SQ SCH ×2 (11:28→20:39)
[2020-10-29] MEDS: atorvastatin 10mg tablet PO SCH (11:28)
[2020-10-29] MEDS: furosemide 20MG tablet PO SCH (11:28)
[2020-10-29] MEDS: carVEDilol 3.125mg tablet PO SCH ×2 (11:28→20:38)
[2020-10-29] MEDS: lithium carbonate 150mg capsule PO SCH ×3 (11:31→17:52)
[2020-10-29] MEDS: aspirin 81mg tablet.DR PO SCH (11:31)
--- NOTE | 2020-10-29 14:15 | NUR ---
Patient sleeping for the first time, allowing to sleep. Addendum: 10/29/20 at 1415 by Viridiana Jasso RN Amended: Links added.
[2020-10-29 15:00] VITALS: BP 156/84
[2020-10-29 18:00] VITALS: BP_SYST 136; BP_SYST 157; BP_DIAS 64; BP_DIAS 84
--- NOTE | 2020-10-29 18:33 | NUR ---
Report given to Doris AGUIRRE
[2020-10-29] MEDS: prazosin 1mg capsule PO SCH (20:38)
[2020-10-29] MEDS: tamsulosin 0.4mg capsule PO SCH (20:38)
[2020-10-30] VITALS: BP_SYST 148; BP_SYST 157; BP_DIAS 59; BP_DIAS 84
[2020-10-30] MEDS: ziprasidone IM 20mg inj **IM only IM PRN (02:58)
[2020-10-30] MEDS: morphine 2 MG/ML inj. syringe IV PRN ×2 (02:59→14:32)
[2020-10-30 05:51] LABS: BASOPHILS % (AUTO) 0.4 % (0-1); EOSINOPHILS # (AUTO) 0.2 X10'3 (0-0.9); EOSINOPHILS % (AUTO) 3.5 % (0-6); HEMOGLOBIN 11.9 g/dl (14.0-17.9); LYMPHOCYTES % (AUTO) 18.5 % (21-51); MEAN CORPUSCULAR HEMOGLOBIN 25.5 PG (27.0-31.0); MEAN CORPUSCULAR HGB CONC 32.1 g/dL (33.0-36.5); MEAN CORPUSCULAR VOLUME 79.4 FL (78-98); MEAN PLATELET VOLUME 7.8 FL (7.4-10.4); MONOCYTES # (AUTO) 0.5 X10'3 (0-0.9); MONOCYTES % (AUTO) 8.8 % (2-12); NEUTROPHILS # (AUTO) 3.5 X10'3 (1.8-7.7); NEUTROPHILS % (AUTO) 68.8 % (42-75); PLATELET COUNT 196 X10'3 (140-440); RED BLOOD COUNT 4.66 X10'6 (4.70-6.10); RED CELL DISTRIBUTION WIDTH 16.7 % (11.5-14.5); WHITE BLOOD COUNT 5.1 X10'3 (4.5-11.0)
[2020-10-30 06:17] LABS: ALANINE AMINOTRANSFERASE 27 U/L (12-78); ALBUMIN 3.2 G/DL (3.4-5.0); ALBUMIN/GLOBULIN RATIO 0.8 (1.1-1.5); ALKALINE PHOSPHATASE 174 IU/L (46-116); ANION GAP 10 (8-16); ASPARTATE AMINO TRANSFERASE 30 U/L (10-37); BILIRUBIN,TOTAL 0.5 MG/DL (0.1-1.0); BLOOD UREA NITROGEN 17 MG/DL (7-18); BUN/CREATININE RATIO 12.1 (5.4-32.0); CALCIUM 9.2 MG/DL (8.5-10.1); CHLORIDE 103 MMOL/L (99-107); GLUCOSE 149 MG/DL (70-104); MAGNESIUM 2.1 MG/DL (1.5-2.4); PHOSPHORUS 3.6 MG/DL (2.3-4.5); POTASSIUM 4.3 MMOL/L (3.5-5.1); SODIUM 140 MMOL/L (135-145); TOTAL CARBON DIOXIDE 27.2 MMOL/L (24-32); TOTAL PROTEIN 7.4 G/DL (6.4-8.2); eGFR 49 ML/MIN
--- NOTE | 2020-10-30 06:20 | NUR ---
Patient in room [facility] 358. I have received report from Doris AGUIRRE and had the opportunity to ask questions and assume patient care.
--- NOTE | 2020-10-30 06:21 | NUR ---
Problems reprioritized. Patient report given, questions answered & plan of care reviewed with TIMOTHY Samano.
[2020-10-30 08:00] VITALS: BP 163/84
[2020-10-30] MEDS: K and/or MAG REPLACEMENT MC SCH ×2 (08:00→20:00)
[2020-10-30] MEDS: aspirin 81mg tablet.DR PO SCH (10:06)
[2020-10-30] MEDS: docusate sod 100mg capsule PO SCH ×2 (10:06→20:12)
[2020-10-30] MEDS: lithium carbonate 150mg capsule PO SCH ×3 (10:06→20:13)
[2020-10-30] MEDS: carVEDilol 3.125mg tablet PO SCH ×2 (10:07→20:12)
[2020-10-30] MEDS: atorvastatin 10mg tablet PO SCH (10:07)
[2020-10-30] MEDS: furosemide 20MG tablet PO SCH (10:07)
[2020-10-30] MEDS: heparin, porcine 5000 units/ml vial SQ SCH ×2 (10:07→20:12)
[2020-10-30 11:00] VITALS: BP 113/48
[2020-10-30] MEDS ORDERED: ondansetron 4mg rapidly disintigrating tab PO PRN (14:30)
[2020-10-30 18:00] VITALS: BP 147/78
--- NOTE | 2020-10-30 18:26 | NUR ---
Patient in room [facility] 358B. I have received report from TIMOTHY Samano and had the opportunity to ask questions and assume patient care.
[2020-10-30] MEDS: tamsulosin 0.4mg capsule PO SCH (20:12)
[2020-10-30] MEDS: prazosin 1mg capsule PO SCH (20:12)
[2020-10-31] VITALS: BP 139/61
[2020-10-31] MEDS: morphine 2 MG/ML inj. syringe IV PRN ×2 (02:34→16:28)
--- NOTE | 2020-10-31 06:48 | NUR ---
Problems reprioritized. Patient report given, questions answered & plan of care reviewed with TIMOTHY Esquivel.
[2020-10-31 07:00] VITALS: BP 153/98
[2020-10-31] MEDS: K and/or MAG REPLACEMENT MC SCH ×2 (08:00→20:00)
[2020-10-31] MEDS: docusate sod 100mg capsule PO SCH ×2 (08:00→21:34)
[2020-10-31 08:25] LABS: BASOPHILS % (AUTO) 0.3 % (0-1); EOSINOPHILS # (AUTO) 0.1 X10'3 (0-0.9); EOSINOPHILS % (AUTO) 2.5 % (0-6); HEMATOCRIT 36.8 % (42.0-52.0); HEMOGLOBIN 11.8 g/dl (14.0-17.9); LYMPHOCYTES # (AUTO) 0.9 X10'3 (1.1-4.8); LYMPHOCYTES % (AUTO) 15.2 % (21-51); MEAN CORPUSCULAR HEMOGLOBIN 25.2 PG (27.0-31.0); MEAN CORPUSCULAR HGB CONC 31.9 g/dL (33.0-36.5); MEAN CORPUSCULAR VOLUME 78.8 FL (78-98); MEAN PLATELET VOLUME 8.5 FL (7.4-10.4); MONOCYTES # (AUTO) 0.5 X10'3 (0-0.9); MONOCYTES % (AUTO) 8.6 % (2-12); NEUTROPHILS # (AUTO) 4.2 X10'3 (1.8-7.7); NEUTROPHILS % (AUTO) 73.4 % (42-75); PLATELET COUNT 216 X10'3 (140-440); RED BLOOD COUNT 4.67 X10'6 (4.70-6.10); RED CELL DISTRIBUTION WIDTH 16.9 % (11.5-14.5); WHITE BLOOD COUNT 5.7 X10'3 (4.5-11.0)
[2020-10-31] MEDS: lithium carbonate 150mg capsule PO SCH ×3 (08:30→16:29)
[2020-10-31 08:44] LABS: ALANINE AMINOTRANSFERASE 26 U/L (12-78); ALBUMIN 3.1 G/DL (3.4-5.0); ALBUMIN/GLOBULIN RATIO 0.7 (1.1-1.5); ALKALINE PHOSPHATASE 165 IU/L (46-116); ANION GAP 14 (8-16); ASPARTATE AMINO TRANSFERASE 30 U/L (10-37); BILIRUBIN,TOTAL 0.5 MG/DL (0.1-1.0); BLOOD UREA NITROGEN 19 MG/DL (7-18); BUN/CREATININE RATIO 14.3 (5.4-32.0); CALCIUM 8.8 MG/DL (8.5-10.1); CHLORIDE 102 MMOL/L (99-107); CREATININE 1.33 MG/DL (0.60-1.10); GLUCOSE 165 MG/DL (70-104); MAGNESIUM 2.1 MG/DL (1.5-2.4); PHOSPHORUS 3.5 MG/DL (2.3-4.5); SODIUM 141 MMOL/L (135-145); TOTAL CARBON DIOXIDE 25.3 MMOL/L (24-32); TOTAL PROTEIN 7.4 G/DL (6.4-8.2); eGFR 52 ML/MIN
[2020-10-31 09:33] LABS: ANISOCYTOSIS 1+; MICROCYTOSIS 1+; PLATELET ESTIMATE NORMAL
[2020-10-31 09:34] LABS: BURR CELLS 1+; ELLIPTOCYTES 1+
[2020-10-31] MEDS: atorvastatin 10mg tablet PO SCH (11:28)
[2020-10-31] MEDS: furosemide 20MG tablet PO SCH (11:28)
[2020-10-31] MEDS: carVEDilol 3.125mg tablet PO SCH ×2 (11:28→21:34)
[2020-10-31] MEDS: heparin, porcine 5000 units/ml vial SQ SCH ×2 (11:30→21:35)
[2020-10-31] MEDS: aspirin 81mg tablet.DR PO SCH (11:30)
[2020-10-31 12:00] VITALS: BP 145/63
--- NOTE | 2020-10-31 14:15 | NUR ---
Pt's friend, Shania Vizcaino ([phone]) stated she might be able to help care for patient if needed at time of DC'g. CM notified.
[2020-10-31] MEDS: insulin Lispro (HumaLOG) vial - multi-dose SQ SCH (14:54)
[2020-10-31] MEDS: magnesium hydroxide 30ml (MOM) UD suspension PO PRN (16:29)
--- NOTE | 2020-10-31 18:52 | NUR ---
Gave report to Merced Blackwood RN.
--- NOTE | 2020-10-31 18:54 | NUR ---
Patient in room [facility] 358. I have received report from BEL AGUIRRE and had the opportunity to ask questions and assume patient care.
[2020-10-31 20:00] VITALS: BP 135/62
--- NOTE | 2020-10-31 20:34 | NUR ---
Pt was being ambulated in the mckay with a gait belt and a fww when he became unrespsonsive. eased down to a lying position. With assist of three staff helped into a wheelchair. B/P 132/77 P71 RR18 94% on R/A T98.3 blood glucose 178. Was again responsive. Helped back into bed. A rapid response was called because at first patient was not responding however it was very short-termed. Reported situation to Dr. Mcmahon no new orders. Pt has a sitter at bedside.
--- NOTE | 2020-10-31 20:50 | NUR ---
2044 B/P 143/64 P65 RR 18 O2 Sat 92% resting no further difficulty.
[2020-10-31] MEDS: tamsulosin 0.4mg capsule PO SCH (21:34)
[2020-10-31] MEDS: prazosin 1mg capsule PO SCH (21:34)
[2020-11-01] VITALS: BP 106/62
--- NOTE | 2020-11-01 06:50 | NUR ---
Problems reprioritized. Patient report given, questions answered & plan of care reviewed with BEL AGUIRRE.
--- NOTE | 2020-11-01 06:53 | NUR ---
Paged PT to work with Pt.
--- NOTE | 2020-11-01 07:16 | NUR ---
PAGER ID: [phone] MESSAGE: [place] 358 Good morning! Pt. had rapid last night. unresponsive while walking. Orthostatics? can we DC sitter? No poop since the .? Suppository? Not drinking/ eating. Fluids? I ordered diet consult. Sierra [phone]
[2020-11-01 07:36] LABS: BASOPHILS % (AUTO) 0.3 % (0-1); EOSINOPHILS % (AUTO) 0.5 % (0-6); HEMATOCRIT 36.8 % (42.0-52.0); HEMOGLOBIN 11.9 g/dl (14.0-17.9); LYMPHOCYTES # (AUTO) 0.7 X10'3 (1.1-4.8); LYMPHOCYTES % (AUTO) 11.5 % (21-51); MEAN CORPUSCULAR HEMOGLOBIN 25.6 PG (27.0-31.0); MEAN CORPUSCULAR HGB CONC 32.4 g/dL (33.0-36.5); MEAN PLATELET VOLUME 8.4 FL (7.4-10.4); MONOCYTES # (AUTO) 0.5 X10'3 (0-0.9); MONOCYTES % (AUTO) 8.1 % (2-12); NEUTROPHILS # (AUTO) 5.2 X10'3 (1.8-7.7); NEUTROPHILS % (AUTO) 79.6 % (42-75); PLATELET COUNT 218 X10'3 (140-440); RED BLOOD COUNT 4.66 X10'6 (4.70-6.10); RED CELL DISTRIBUTION WIDTH 16.8 % (11.5-14.5); WHITE BLOOD COUNT 6.5 X10'3 (4.5-11.0)
[2020-11-01] MEDS: aspirin 81mg tablet.DR PO SCH (07:41)
[2020-11-01] MEDS: docusate sod 100mg capsule PO SCH ×2 (07:41→19:38)
[2020-11-01] MEDS: K and/or MAG REPLACEMENT MC SCH ×2 (07:41→20:00)
[2020-11-01] MEDS: atorvastatin 10mg tablet PO SCH (07:41)
[2020-11-01] MEDS: furosemide 20MG tablet PO SCH ×2 (07:41→08:00)
[2020-11-01] MEDS: carVEDilol 3.125mg tablet PO SCH ×2 (07:41→19:38)
[2020-11-01] MEDS: lithium carbonate 150mg capsule PO SCH ×3 (07:41→17:44)
[2020-11-01] MEDS: heparin, porcine 5000 units/ml vial SQ SCH ×2 (07:42→19:39)
[2020-11-01 07:55] VITALS: BP 136/62
[2020-11-01 07:56] VITALS: BP 120/68
[2020-11-01 08:01] LABS: ALANINE AMINOTRANSFERASE 24 U/L (12-78); ALBUMIN 3.2 G/DL (3.4-5.0); ALBUMIN/GLOBULIN RATIO 0.7 (1.1-1.5); ALKALINE PHOSPHATASE 168 IU/L (46-116); ANION GAP 15 (8-16); ASPARTATE AMINO TRANSFERASE 29 U/L (10-37); BILIRUBIN,TOTAL 0.6 MG/DL (0.1-1.0); BLOOD UREA NITROGEN 24 MG/DL (7-18); BUN/CREATININE RATIO 16.7 (5.4-32.0); CALCIUM 9.1 MG/DL (8.5-10.1); CHLORIDE 98 MMOL/L (99-107); CREATININE 1.44 MG/DL (0.60-1.10); GLUCOSE 191 MG/DL (70-104); MAGNESIUM 2.4 MG/DL (1.5-2.4); PHOSPHORUS 3.7 MG/DL (2.3-4.5); SODIUM 139 MMOL/L (135-145); TOTAL CARBON DIOXIDE 25.8 MMOL/L (24-32); TOTAL PROTEIN 7.5 G/DL (6.4-8.2); eGFR 47 ML/MIN
[2020-11-01] MEDS: insulin Lispro (HumaLOG) vial - multi-dose SQ SCH ×2 (09:51→19:52)
--- NOTE | 2020-11-01 11:34 | NUR ---
SPOKE TO HOSPITALIST DURING ROUNDS. HE AWARE OF RAPID LAST NIGHT. CONCERNED ABOUT PT. NOT EATING AND DRINKING. STATES TO CONTINUE TO TRY AND PUSH FLUIDS AND FOOD. [facility] SO[facility] DIET. KUB AND SUPPOSITORIES ORDERED FOR NOT POOPING. MD WANTS SITTER TO REMAIN IN ROOM IS UNSAFE TO BE ALONE.
[2020-11-01] MEDS ORDERED: bisacodyl 10mg suppository rectal RC PRN (11:35)
[2020-11-01 12:22] VITALS: BP 132/59
[2020-11-01] MEDS ORDERED: bisacodyl 10mg suppository rectal RC ONE (13:00)
--- NOTE | 2020-11-01 15:07 | NUR ---
Nutrition Consult "pt not eating/drinking": Pt admit s/p falls w/ weakness and ALOC DX possible lithium toxicity w/ psych hx depression, bipolar d/o, and dementia per EMR. Hx T2DM A1C 7.3 appropriate given age. Pt placed on carb controlled/heart healthy diet this admit PO ~25% avg meals w/ refusal of breakfast yesterday and only 75% starch breakfast this AM not meeting needs. Noted LBM 10/27 5 days constipation receiving routine colace now s/p one time dulcolax w/ PRN MoM available last given 10/31. Constipation as well as ALOC likely to impact PO meals. This afternoon pt placed on pureed diet without FISH HATCHERY SUPERVISOR BSS; RD recommends FISH HATCHERY SUPERVISOR BSS for appropriate textures given hx. Will monitor for PO trends following FISH HATCHERY SUPERVISOR BSS; may benefit from ONS if poor PO persists once on appropriate texture modification. Will continue to monitor for PO acceptance and additional protein/kcal needs. Rec: 1. continue carb controlled diet; monitor for FISH HATCHERY SUPERVISOR BSS recs for appropriate textures 2. liberalize from heart healthy restriction if MD agreeable given age and poor PO hx 3. monitor for ONS needs; consider Ensure Enlive if poor PO persists 4. routine bowel care; 5 days constipation 5. scaled wt this admit; subsequent weekly wts Addendum: 11/01/20 at [address] Amended: Links added.
--- NOTE | 2020-11-01 15:59 | NUR ---
PAGER ID: [phone] MESSAGE: [place] 358B Pt taking 150mg lithium TID, still not drinking fluids maybe 100ml total intake today. BUN 24 CR 1.44 Trending up. CL low at 98. Ate one pudding today. EF 65%. Sierra [phone]
[2020-11-01] MEDS ORDERED: normal saline 1000ml 1,000 ML IVB ONE (16:00)
[2020-11-01] MEDS: normal saline 1000ml 1,000 ML IV SCH (17:44)
--- NOTE | 2020-11-01 18:18 | NUR ---
Problems reprioritized. Patient report given, questions answered & plan of care reviewed with Prudence RN.
[2020-11-01 19:00] VITALS: BP 135/64
[2020-11-01] MEDS: morphine 2 MG/ML inj. syringe IV PRN (20:12)
[2020-11-01] MEDS: prazosin 1mg capsule PO SCH (20:13)
[2020-11-01] MEDS: tamsulosin 0.4mg capsule PO SCH (20:13)
[2020-11-02] VITALS: BP 157/75
[2020-11-02] MEDS: morphine 2 MG/ML inj. syringe IV PRN ×2 (00:14→12:31)
[2020-11-02] MEDS: normal saline 1000ml 1,000 ML IV SCH ×3 (05:42→23:19)
--- NOTE | 2020-11-02 06:38 | NUR ---
Problems reprioritized. Patient report given, questions answered & plan of care reviewed with CESAR AGUIRRE.
--- NOTE | 2020-11-02 06:56 | NUR ---
Patient in room [facility] 358B. I have received report from TIMOTHY BOOKER and had the opportunity to ask questions and assume patient care.
[2020-11-02 07:00] VITALS: BP 158/48
[2020-11-02 07:56] LABS: BASOPHILS % (AUTO) 0.4 % (0-1); EOSINOPHILS # (AUTO) 0.1 X10'3 (0-0.9); EOSINOPHILS % (AUTO) 2.6 % (0-6); HEMATOCRIT 36.3 % (42.0-52.0); HEMOGLOBIN 11.4 g/dl (14.0-17.9); LYMPHOCYTES # (AUTO) 0.7 X10'3 (1.1-4.8); LYMPHOCYTES % (AUTO) 16.1 % (21-51); MEAN CORPUSCULAR HEMOGLOBIN 24.9 PG (27.0-31.0); MEAN CORPUSCULAR HGB CONC 31.6 g/dL (33.0-36.5); MEAN CORPUSCULAR VOLUME 78.8 FL (78-98); MEAN PLATELET VOLUME 8.2 FL (7.4-10.4); MONOCYTES # (AUTO) 0.4 X10'3 (0-0.9); MONOCYTES % (AUTO) 8.6 % (2-12); NEUTROPHILS # (AUTO) 3.2 X10'3 (1.8-7.7); NEUTROPHILS % (AUTO) 72.3 % (42-75); PLATELET COUNT 178 X10'3 (140-440); RED CELL DISTRIBUTION WIDTH 16.7 % (11.5-14.5); WHITE BLOOD COUNT 4.5 X10'3 (4.5-11.0)
[2020-11-02] MEDS: K and/or MAG REPLACEMENT MC SCH ×2 (08:00→19:42)
[2020-11-02 08:21] LABS: ALANINE AMINOTRANSFERASE 29 U/L (12-78); ALBUMIN 2.9 G/DL (3.4-5.0); ALBUMIN/GLOBULIN RATIO 0.7 (1.1-1.5); ALKALINE PHOSPHATASE 148 IU/L (46-116); ANION GAP 14 (8-16); ASPARTATE AMINO TRANSFERASE 28 U/L (10-37); BILIRUBIN,TOTAL 0.5 MG/DL (0.1-1.0); BLOOD UREA NITROGEN 21 MG/DL (7-18); BUN/CREATININE RATIO 16.9 (5.4-32.0); CALCIUM 8.9 MG/DL (8.5-10.1); CHLORIDE 104 MMOL/L (99-107); CREATININE 1.24 MG/DL (0.60-1.10); GLUCOSE 171 MG/DL (70-104); MAGNESIUM 2.3 MG/DL (1.5-2.4); PHOSPHORUS 3.2 MG/DL (2.3-4.5); POTASSIUM 4.2 MMOL/L (3.5-5.1); SODIUM 142 MMOL/L (135-145); TOTAL CARBON DIOXIDE 24.3 MMOL/L (24-32); eGFR 56 ML/MIN
--- NOTE | 2020-11-02 09:06 | NUR ---
Jalil Warren ([phone]) called for an update on the patient. TIMOTHY Pickens and Lluvia RUFFIN
[2020-11-02] MEDS: docusate sod 100mg capsule PO SCH ×2 (09:51→19:53)
[2020-11-02] MEDS: atorvastatin 10mg tablet PO SCH (09:51)
[2020-11-02] MEDS: aspirin 81mg tablet.DR PO SCH (09:51)
[2020-11-02] MEDS: lithium carbonate 150mg capsule PO SCH ×3 (09:51→17:13)
[2020-11-02] MEDS: carVEDilol 3.125mg tablet PO SCH ×2 (09:51→19:53)
[2020-11-02] MEDS: furosemide 20MG tablet PO SCH (09:51)
[2020-11-02] MEDS: heparin, porcine 5000 units/ml vial SQ SCH ×2 (09:54→19:53)
[2020-11-02 11:00] VITALS: BP 133/55
--- NOTE | 2020-11-02 18:11 | NUR ---
Patient in room [facility] 358. I have received report from CESAR AGUIRRE and had the opportunity to ask questions and assume patient care.
--- NOTE | 2020-11-02 18:21 | NUR ---
Problems reprioritized. Patient report given, questions answered & plan of care reviewed with TIMOTHY DAVIS.
[2020-11-02] MEDS: insulin Lispro (HumaLOG) vial - multi-dose SQ SCH (20:01)
[2020-11-02] MEDS: prazosin 1mg capsule PO SCH (22:12)
[2020-11-02] MEDS: tamsulosin 0.4mg capsule PO SCH (22:12)
[2020-11-03 00:57] VITALS: BP 157/70
[2020-11-03] MEDS: morphine 2 MG/ML inj. syringe IV PRN ×3 (01:06→15:55)
--- NOTE | 2020-11-03 06:46 | NUR ---
Patient in room [facility] 358. I have received report from TIMOTHY Cisse and had the opportunity to ask questions and assume patient care.
--- NOTE | 2020-11-03 06:47 | NUR ---
Problems reprioritized. Patient report given, questions answered & plan of care reviewed with MIHAELA AGUIRRE.
[2020-11-03 07:00] VITALS: BP 155/92
[2020-11-03 07:32] LABS: BASOPHILS % (AUTO) 0.4 % (0-1); EOSINOPHILS # (AUTO) 0.1 X10'3 (0-0.9); EOSINOPHILS % (AUTO) 2.3 % (0-6); HEMATOCRIT 36.9 % (42.0-52.0); HEMOGLOBIN 11.9 g/dl (14.0-17.9); LYMPHOCYTES # (AUTO) 0.9 X10'3 (1.1-4.8); LYMPHOCYTES % (AUTO) 17.3 % (21-51); MEAN CORPUSCULAR HEMOGLOBIN 25.3 PG (27.0-31.0); MEAN CORPUSCULAR HGB CONC 32.3 g/dL (33.0-36.5); MEAN CORPUSCULAR VOLUME 78.5 FL (78-98); MEAN PLATELET VOLUME 8.2 FL (7.4-10.4); MONOCYTES # (AUTO) 0.4 X10'3 (0-0.9); MONOCYTES % (AUTO) 7.5 % (2-12); NEUTROPHILS # (AUTO) 3.9 X10'3 (1.8-7.7); NEUTROPHILS % (AUTO) 72.5 % (42-75); PLATELET COUNT 215 X10'3 (140-440); RED BLOOD COUNT 4.71 X10'6 (4.70-6.10); RED CELL DISTRIBUTION WIDTH 17.2 % (11.5-14.5); WHITE BLOOD COUNT 5.4 X10'3 (4.5-11.0)
[2020-11-03] MEDS: K and/or MAG REPLACEMENT MC SCH ×2 (08:00→20:00)
[2020-11-03 08:09] LABS: ALANINE AMINOTRANSFERASE 31 U/L (12-78); ALBUMIN 2.8 G/DL (3.4-5.0); ALBUMIN/GLOBULIN RATIO 0.7 (1.1-1.5); ALKALINE PHOSPHATASE 149 IU/L (46-116); ANION GAP 16 (8-16); ASPARTATE AMINO TRANSFERASE 31 U/L (10-37); BILIRUBIN,TOTAL 0.5 MG/DL (0.1-1.0); BLOOD UREA NITROGEN 21 MG/DL (7-18); BUN/CREATININE RATIO 19.8 (5.4-32.0); CALCIUM 8.7 MG/DL (8.5-10.1); CHLORIDE 104 MMOL/L (99-107); CREATININE 1.06 MG/DL (0.60-1.10); GLUCOSE 147 MG/DL (70-104); MAGNESIUM 2.1 MG/DL (1.5-2.4); PHOSPHORUS 3.4 MG/DL (2.3-4.5); SODIUM 143 MMOL/L (135-145); TOTAL CARBON DIOXIDE 22.7 MMOL/L (24-32); eGFR 67 ML/MIN
[2020-11-03] MEDS: lithium carbonate 150mg capsule PO SCH ×3 (09:04→17:24)
[2020-11-03] MEDS: docusate sod 100mg capsule PO SCH ×2 (09:04→19:56)
[2020-11-03] MEDS: carVEDilol 3.125mg tablet PO SCH ×2 (09:04→19:56)
[2020-11-03] MEDS: atorvastatin 10mg tablet PO SCH (09:04)
[2020-11-03] MEDS: furosemide 20MG tablet PO SCH (09:04)
[2020-11-03] MEDS: aspirin 81mg tablet.DR PO SCH (09:04)
[2020-11-03] MEDS: heparin, porcine 5000 units/ml vial SQ SCH ×2 (09:05→19:59)
[2020-11-03] MEDS: insulin Lispro (HumaLOG) vial - multi-dose SQ SCH ×2 (09:08→13:24)
[2020-11-03 11:00] VITALS: BP 149/60
[2020-11-03] MEDS: normal saline 1000ml 1,000 ML IV SCH (12:41)
--- NOTE | 2020-11-03 18:25 | NUR ---
Patient in room [facility] 358. I have received report from MIHAELA AGUIRRE and had the opportunity to ask questions and assume patient care. Addendum: 11/03/20 at 1903 by Lily Redd RN Amended: Links added.
--- NOTE | 2020-11-03 18:51 | NUR ---
Problems reprioritized. Patient report given, questions answered & plan of care reviewed with TIMOTHY Correia.
[2020-11-03 19:00] VITALS: BP 180/74
[2020-11-03] MEDS: prazosin 1mg capsule PO SCH (19:56)
[2020-11-03] MEDS: tamsulosin 0.4mg capsule PO SCH (19:56)
--- NOTE | 2020-11-03 20:09 | NUR ---
PT REFUSING TO EAT WITH ENCORAGEMENT ONLY AT 2 BITES POTATOES MASHED AND 3 OF APPLESAUCE BABY BITES. ACCUCHECK 138. NO COVERAGE FOR THIS.
[2020-11-04] VITALS: BP 140/64
[2020-11-04] MEDS: normal saline 1000ml 1,000 ML IV SCH (04:41)
--- NOTE | 2020-11-04 06:12 | NUR ---
Problems reprioritized. Patient report given, questions answered & plan of care reviewed with MIHAELA AGUIRRE. Addendum: 11/04/20 at 0614 by Lily Redd RN Amended: Links added.
--- NOTE | 2020-11-04 06:35 | NUR ---
Patient in room [facility] 358. I have received report from TIMOTHY Bautista and had the opportunity to ask questions and assume patient care.
[2020-11-04 06:58] LABS: BASOPHILS % (AUTO) 0.4 % (0-1); EOSINOPHILS # (AUTO) 0.1 X10'3 (0-0.9); EOSINOPHILS % (AUTO) 1.7 % (0-6); HEMATOCRIT 35.2 % (42.0-52.0); HEMOGLOBIN 11.5 g/dl (14.0-17.9); LYMPHOCYTES % (AUTO) 19.1 % (21-51); MEAN CORPUSCULAR HEMOGLOBIN 25.5 PG (27.0-31.0); MEAN CORPUSCULAR HGB CONC 32.7 g/dL (33.0-36.5); MEAN CORPUSCULAR VOLUME 78.2 FL (78-98); MEAN PLATELET VOLUME 8.1 FL (7.4-10.4); MONOCYTES # (AUTO) 0.4 X10'3 (0-0.9); MONOCYTES % (AUTO) 8.3 % (2-12); NEUTROPHILS # (AUTO) 3.7 X10'3 (1.8-7.7); NEUTROPHILS % (AUTO) 70.5 % (42-75); PLATELET COUNT 207 X10'3 (140-440); RED BLOOD COUNT 4.51 X10'6 (4.70-6.10); RED CELL DISTRIBUTION WIDTH 16.6 % (11.5-14.5); WHITE BLOOD COUNT 5.3 X10'3 (4.5-11.0)
[2020-11-04 07:00] VITALS: BP 173/67
[2020-11-04 07:31] LABS: ALANINE AMINOTRANSFERASE 32 U/L (12-78); ALBUMIN 2.8 G/DL (3.4-5.0); ALBUMIN/GLOBULIN RATIO 0.7 (1.1-1.5); ALKALINE PHOSPHATASE 157 IU/L (46-116); ANION GAP 14 (8-16); ASPARTATE AMINO TRANSFERASE 32 U/L (10-37); BILIRUBIN,TOTAL 0.6 MG/DL (0.1-1.0); BLOOD UREA NITROGEN 20 MG/DL (7-18); BUN/CREATININE RATIO 17.4 (5.4-32.0); CALCIUM 8.9 MG/DL (8.5-10.1); CHLORIDE 103 MMOL/L (99-107); CREATININE 1.15 MG/DL (0.60-1.10); GLUCOSE 159 MG/DL (70-104); PHOSPHORUS 3.5 MG/DL (2.3-4.5); POTASSIUM 3.8 MMOL/L (3.5-5.1); SODIUM 139 MMOL/L (135-145); TOTAL CARBON DIOXIDE 22.5 MMOL/L (24-32); TOTAL PROTEIN 7.1 G/DL (6.4-8.2); eGFR 61 ML/MIN
[2020-11-04] MEDS: furosemide 20MG tablet PO SCH (07:36)
[2020-11-04] MEDS: carVEDilol 3.125mg tablet PO SCH ×2 (07:36→19:41)
[2020-11-04] MEDS: docusate sod 100mg capsule PO SCH ×2 (07:36→19:41)
[2020-11-04] MEDS: atorvastatin 10mg tablet PO SCH (07:37)
[2020-11-04] MEDS: aspirin 81mg tablet.DR PO SCH (07:37)
[2020-11-04] MEDS: lithium carbonate 150mg capsule PO SCH ×4 (07:38→19:41)
[2020-11-04] MEDS: heparin, porcine 5000 units/ml vial SQ SCH ×2 (07:38→19:43)
[2020-11-04] MEDS: K and/or MAG REPLACEMENT MC SCH ×2 (08:00→20:00)
[2020-11-04] MEDS: insulin Lispro (HumaLOG) vial - multi-dose SQ SCH ×3 (08:42→19:38)
[2020-11-04] MEDS ORDERED: [UNRECOGNIZED DRUG - REMARK] IV SCH ×2 (10:35)
[2020-11-04 11:00] VITALS: BP_SYST 160; BP_SYST 180; BP_DIAS 67; BP_DIAS 75
[2020-11-04] MEDS: potassium CL 20mEq in D5-1/2NS 1,000 ML IV SCH (12:19)
--- NOTE | 2020-11-04 14:58 | NUR ---
F/u 11/04: Pt s/p video swallow study LAND AGENT recommends pureed/thin diet. LBM 7/15 large following prior 5 days constipation though pt now refusing meals past 4 days even following constipation resolution. Not meeting nutrition needs. Noted copious BM's documented in EMR though RN today reports documentation inaccurate in EMR true LBM 7/15 and pt receiving routine colace. Noted pt remains confused w/ sitter present though refusing meals. Possible nutrition support if continues to refuse per MD note today. RD recommends EN via corpak if nutrition support given functional gut and to prevent bacterial translocation; EN recs below using IBW as pending scaled wt this admit. Given mild weakness and poor PO hx past 7 days pt meet non-severe malnutrition criteria; MD notified. Pt started on KCL/dex/NS at 75ml/hr for hydration per MD today providing 306 kcals/day. Will continue to monitor for nutrition support needs and additional protein/kcal needs this admit. Rec: 1. continue carb controlled/heart healthy/pureed/thin diet per LAND AGENT/MD recs; consider change to regular given poor PO hx; encourage PO 2. IF continue prolonged poor intake/meal refusal w/ ALOC; EN via NG to meet nutrition needs given functional gut 3. IF TF; continuous TF using Jevity 1.2 at 72ml/hr goal; to provide 1728ml volume, 2074 kcals, 1400ml free water, and 96g protein 4. IF TF; additional water flush 100ml Q4H 5. routine bowel care 6. scaled wt this admit; subsequent weekly wts Addendum: 11/04/20 at [address] Amended: Links added.
--- NOTE | 2020-11-04 18:22 | NUR ---
Problems reprioritized. Patient report given, questions answered & plan of care reviewed with TIMOTHY Bautista.
--- NOTE | 2020-11-04 18:35 | NUR ---
Patient in room [facility] 358. I have received report from MIHAELA AGUIRRE and had the opportunity to ask questions and assume patient care. Addendum: 11/04/20 at 1835 by Lily Redd RN Amended: Links added.
[2020-11-04 19:05] VITALS: BP 133/107
[2020-11-04 19:10] VITALS: BP 160/57
[2020-11-04] MEDS: tamsulosin 0.4mg capsule PO SCH (19:41)
[2020-11-04] MEDS: prazosin 1mg capsule PO SCH (19:42)
[2020-11-04] MEDS: QUEtiapine 25mg tablet PO SCH (21:00)
[2020-11-05] MEDS: potassium CL 20mEq in D5-1/2NS 1,000 ML IV SCH ×2 (00:25→14:20)
[2020-11-05 05:45] LABS: BASOPHILS % (AUTO) 0.6 % (0-1); EOSINOPHILS # (AUTO) 0.2 X10'3 (0-0.9); EOSINOPHILS % (AUTO) 4.6 % (0-6); HEMATOCRIT 36.8 % (42.0-52.0); HEMOGLOBIN 11.8 g/dl (14.0-17.9); LYMPHOCYTES # (AUTO) 0.9 X10'3 (1.1-4.8); LYMPHOCYTES % (AUTO) 26.3 % (21-51); MEAN CORPUSCULAR HEMOGLOBIN 25.3 PG (27.0-31.0); MONOCYTES # (AUTO) 0.3 X10'3 (0-0.9); MONOCYTES % (AUTO) 8.5 % (2-12); PLATELET COUNT 173 X10'3 (140-440); RED BLOOD COUNT 4.66 X10'6 (4.70-6.10); RED CELL DISTRIBUTION WIDTH 17.3 % (11.5-14.5); WHITE BLOOD COUNT 3.3 X10'3 (4.5-11.0)
[2020-11-05 06:03] LABS: ALANINE AMINOTRANSFERASE 28 U/L (12-78); ALBUMIN 2.7 G/DL (3.4-5.0); ALBUMIN/GLOBULIN RATIO 0.6 (1.1-1.5); ALKALINE PHOSPHATASE 139 IU/L (46-116); ANION GAP 9 (8-16); ASPARTATE AMINO TRANSFERASE 31 U/L (10-37); BILIRUBIN,TOTAL 0.6 MG/DL (0.1-1.0); BLOOD UREA NITROGEN 14 MG/DL (7-18); BUN/CREATININE RATIO 13.2 (5.4-32.0); CHLORIDE 104 MMOL/L (99-107); CREATININE 1.06 MG/DL (0.60-1.10); GLUCOSE 204 MG/DL (70-104); MAGNESIUM 2.1 MG/DL (1.5-2.4); POTASSIUM 3.7 MMOL/L (3.5-5.1); SODIUM 138 MMOL/L (135-145); TOTAL CARBON DIOXIDE 24.9 MMOL/L (24-32); TOTAL PROTEIN 7.1 G/DL (6.4-8.2); eGFR 67 ML/MIN
--- NOTE | 2020-11-05 06:44 | NUR ---
Problems reprioritized. Patient report given, questions answered & plan of care reviewed with ARLIN AGUIRRE. Addendum: 11/05/20 at 0644 by Lily Redd RN Amended: Links added.
--- NOTE | 2020-11-05 07:04 | NUR ---
Patient in room [facility] 358. I have received report from Lily AGUIRRE and had the opportunity to ask questions and assume patient care.
[2020-11-05 07:18] VITALS: BP 155/55
[2020-11-05] MEDS: K and/or MAG REPLACEMENT MC SCH ×2 (08:00→20:00)
[2020-11-05] MEDS: heparin, porcine 5000 units/ml vial SQ SCH ×2 (09:19→19:24)
[2020-11-05] MEDS: carVEDilol 3.125mg tablet PO SCH ×2 (09:19→19:23)
[2020-11-05] MEDS: atorvastatin 10mg tablet PO SCH (09:19)
[2020-11-05] MEDS: furosemide 20MG tablet PO SCH (09:19)
[2020-11-05] MEDS: lithium carbonate 150mg capsule PO SCH ×2 (09:19→17:48)
[2020-11-05] MEDS: aspirin 81mg tablet.DR PO SCH (09:20)
[2020-11-05] MEDS: docusate sod 100mg capsule PO SCH ×2 (09:26→19:23)
[2020-11-05] MEDS: insulin Lispro (HumaLOG) vial - multi-dose SQ SCH ×3 (10:26→19:20)
[2020-11-05 11:33] VITALS: BP 171/66
[2020-11-05] MEDS: acetaminophen 325mg tablet PO PRN (12:18)
--- NOTE | 2020-11-05 18:20 | NUR ---
Patient in room [facility] 358. I have received report from ARLIN AGUIRRE and had the opportunity to ask questions and assume patient care. Addendum: 11/05/20 at 1820 by Lily Redd RN Amended: Links added.
--- NOTE | 2020-11-05 18:52 | NUR ---
Problems reprioritized. Patient report given, questions answered & plan of care reviewed with Lily Vazquez.
[2020-11-05 19:00] VITALS: BP 101/59
[2020-11-05] MEDS: QUEtiapine 25mg tablet PO SCH (19:22)
[2020-11-05] MEDS: prazosin 1mg capsule PO SCH (19:22)
[2020-11-05] MEDS: tamsulosin 0.4mg capsule PO SCH (19:27)
--- NOTE | 2020-11-05 21:01 | NUR ---
CLEAR CAN BE PT X3 STATED i FEEL LIKE i'M GOING TO HURT SOMEONE AND EXPRESSED ANXIETY. HE ASKED ME IF I HAD SOMETHING TO HELP CALM HIM DOWN I STATED THERE IS A SHOT HE SAID HE WANTED IT. PT MEDICATED PER HIS REQUEST WITH 10MG OF IM GEODON.
[2020-11-05] MEDS: ziprasidone IM 20mg inj **IM only IM PRN (21:08)
--- NOTE | 2020-11-06 00:20 | NUR ---
pt appears comfortable resting eyes closed without s&s of distress.
--- NOTE | 2020-11-06 01:07 | NUR ---
pt awoke inc of urine skin care done and attends changed. pt lets nurse know when he is wet.
[2020-11-06] MEDS: potassium CL 20mEq in D5-1/2NS 1,000 ML IV SCH ×2 (03:30→16:17)
[2020-11-06 07:11] LABS: BASOPHILS % (AUTO) 0.4 % (0-1); EOSINOPHILS # (AUTO) 0.2 X10'3 (0-0.9); EOSINOPHILS % (AUTO) 3.8 % (0-6); HEMATOCRIT 37.2 % (42.0-52.0); HEMOGLOBIN 11.8 g/dl (14.0-17.9); LYMPHOCYTES # (AUTO) 1.3 X10'3 (1.1-4.8); LYMPHOCYTES % (AUTO) 30.9 % (21-51); MEAN CORPUSCULAR HEMOGLOBIN 25.4 PG (27.0-31.0); MEAN CORPUSCULAR HGB CONC 31.9 g/dL (33.0-36.5); MEAN CORPUSCULAR VOLUME 79.8 FL (78-98); MEAN PLATELET VOLUME 8.5 FL (7.4-10.4); MONOCYTES # (AUTO) 0.3 X10'3 (0-0.9); MONOCYTES % (AUTO) 8.1 % (2-12); NEUTROPHILS # (AUTO) 2.3 X10'3 (1.8-7.7); NEUTROPHILS % (AUTO) 56.8 % (42-75); PLATELET COUNT 146 X10'3 (140-440); RED BLOOD COUNT 4.66 X10'6 (4.70-6.10); WHITE BLOOD COUNT 4.1 X10'3 (4.5-11.0)
[2020-11-06 07:26] LABS: ALANINE AMINOTRANSFERASE 23 U/L (12-78); ALBUMIN 2.6 G/DL (3.4-5.0); ALBUMIN/GLOBULIN RATIO 0.6 (1.1-1.5); ALKALINE PHOSPHATASE 132 IU/L (46-116); ANION GAP 10 (8-16); ASPARTATE AMINO TRANSFERASE 26 U/L (10-37); BILIRUBIN,TOTAL 0.5 MG/DL (0.1-1.0); BLOOD UREA NITROGEN 15 MG/DL (7-18); BUN/CREATININE RATIO 12.5 (5.4-32.0); CHLORIDE 105 MMOL/L (99-107); GLUCOSE 207 MG/DL (70-104); PHOSPHORUS 3.1 MG/DL (2.3-4.5); POTASSIUM 3.9 MMOL/L (3.5-5.1); SODIUM 141 MMOL/L (135-145); TOTAL CARBON DIOXIDE 26.2 MMOL/L (24-32); TOTAL PROTEIN 6.7 G/DL (6.4-8.2); eGFR 58 ML/MIN
[2020-11-06] MEDS: K and/or MAG REPLACEMENT MC SCH ×2 (08:00→20:00)
[2020-11-06] MEDS: aspirin 81mg tablet.DR PO SCH (09:11)
[2020-11-06] MEDS: carVEDilol 3.125mg tablet PO SCH ×2 (09:11→20:00)
[2020-11-06] MEDS: docusate sod 100mg capsule PO SCH ×2 (09:11→19:55)
[2020-11-06] MEDS: heparin, porcine 5000 units/ml vial SQ SCH ×2 (09:12→19:55)
[2020-11-06] MEDS: atorvastatin 10mg tablet PO SCH (09:12)
[2020-11-06] MEDS: lithium carbonate 150mg capsule PO SCH ×3 (09:12→17:31)
[2020-11-06] MEDS: furosemide 20MG tablet PO SCH (09:12)
[2020-11-06] MEDS: insulin Lispro (HumaLOG) vial - multi-dose SQ SCH ×2 (10:36→19:52)
[2020-11-06 14:40] VITALS: BP 129/54
[2020-11-06] MEDS: morphine 2 MG/ML inj. syringe IV PRN (17:31)
[2020-11-06 18:00] VITALS: BP 146/66
--- NOTE | 2020-11-06 18:18 | NUR ---
Problems reprioritized. Patient report given, questions answered & plan of care reviewed with Edita AGUIRRE.
--- NOTE | 2020-11-06 18:19 | NUR ---
Patient in room [facility] 358. I have received report from TIMOTHY Samano and had the opportunity to ask questions and assume patient care.
[2020-11-06] MEDS: QUEtiapine 25mg tablet PO SCH (19:57)
[2020-11-06] MEDS: prazosin 1mg capsule PO SCH (19:57)
[2020-11-06] MEDS: tamsulosin 0.4mg capsule PO SCH (19:58)
[2020-11-07] VITALS: BP 164/66
[2020-11-07] MEDS: potassium CL 20mEq in D5-1/2NS 1,000 ML IV SCH ×2 (04:37→17:25)
--- NOTE | 2020-11-07 06:26 | NUR ---
Problems reprioritized. Patient report given, questions answered & plan of care reviewed with TIMOTHY Pickens.
--- NOTE | 2020-11-07 06:45 | NUR ---
Patient in room [facility] 354B. I have received report from TIMOTHY HERMAN and had the opportunity to ask questions and assume patient care.
[2020-11-07 07:00] VITALS: BP 145/93
[2020-11-07] MEDS: K and/or MAG REPLACEMENT MC SCH ×2 (08:00→20:00)
[2020-11-07] MEDS: docusate sod 100mg capsule PO SCH ×2 (08:00→19:18)
[2020-11-07] MEDS: lithium carbonate 150mg capsule PO SCH ×3 (10:00→17:24)
[2020-11-07] MEDS: heparin, porcine 5000 units/ml vial SQ SCH ×2 (10:01→19:18)
[2020-11-07] MEDS: aspirin 81mg tablet.DR PO SCH (10:01)
[2020-11-07] MEDS: atorvastatin 10mg tablet PO SCH (10:01)
[2020-11-07] MEDS: furosemide 20MG tablet PO SCH (10:03)
[2020-11-07] MEDS: carVEDilol 3.125mg tablet PO SCH ×2 (10:03→19:18)
[2020-11-07] MEDS: insulin Lispro (HumaLOG) vial - multi-dose SQ SCH ×3 (10:11→19:35)
[2020-11-07 12:00] VITALS: BP 133/70
--- NOTE | 2020-11-07 18:05 | NUR ---
Patient in room [facility] 354. I have received report from TIMOTHY Pickens and had the opportunity to ask questions and assume patient care.
--- NOTE | 2020-11-07 18:29 | NUR ---
Problems reprioritized. Patient report given, questions answered & plan of care reviewed with TIMOTHY MORALES.
[2020-11-07 19:00] VITALS: BP 139/89
[2020-11-07] MEDS: magnesium hydroxide 30ml (MOM) UD suspension PO PRN (19:18)
[2020-11-07] MEDS: prazosin 1mg capsule PO SCH (21:14)
[2020-11-07] MEDS: tamsulosin 0.4mg capsule PO SCH (21:14)
[2020-11-07] MEDS: morphine 2 MG/ML inj. syringe IV PRN (21:15)
[2020-11-07] MEDS: QUEtiapine 25mg tablet PO SCH (21:15)
[2020-11-07 21:18] VITALS: BP 162/65
[2020-11-08] VITALS: BP 129/43
--- NOTE | 2020-11-08 06:43 | NUR ---
Problems reprioritized. Patient report given, questions answered & plan of care reviewed with TIMOTHY Diaz.
[2020-11-08 08:00] VITALS: BP 145/40
[2020-11-08] MEDS: K and/or MAG REPLACEMENT MC SCH ×2 (08:00→20:00)
[2020-11-08] MEDS: insulin Lispro (HumaLOG) vial - multi-dose SQ SCH ×3 (09:03→23:39)
[2020-11-08] MEDS: potassium CL 20mEq in D5-1/2NS 1,000 ML IV SCH (09:09)
[2020-11-08] MEDS: heparin, porcine 5000 units/ml vial SQ SCH ×2 (09:12→21:19)
[2020-11-08] MEDS: carVEDilol 3.125mg tablet PO SCH ×2 (09:15→21:18)
[2020-11-08] MEDS: docusate sod 100mg capsule PO SCH ×2 (09:15→21:18)
[2020-11-08] MEDS: lithium carbonate 150mg capsule PO SCH ×3 (09:15→17:37)
[2020-11-08] MEDS: aspirin 81mg tablet.DR PO SCH (09:16)
[2020-11-08] MEDS: furosemide 20MG tablet PO SCH (09:16)
[2020-11-08] MEDS: atorvastatin 10mg tablet PO SCH (09:16)
[2020-11-08] MEDS: magnesium hydroxide 30ml (MOM) UD suspension PO PRN (09:17)
[2020-11-08 11:00] VITALS: BP 103/47
--- NOTE | 2020-11-08 17:15 | NUR ---
F/u 11/08: Pt PO continues to fluctuate though steadily improving from prior 4 day period of meal refusals. Overall PO past 3 days 25-50% up to 50-75% past 4 meals per EMR. Noted LBM 11/01 receiving routine colace and PRN MoM as well as dulcolax provided today per EMR. 7 days constipation likely to impact PO intake in addition to dementia hx. RD recommends ensure enlive TIDWM for additional protein/kcals given fluctuating intake hx; MD notified. Continues to receive KCl/dex/NS at 75ml/hr providing additional 306 kcals/day. Will continue to monitor. Rec: 1. liberalize to regular/pureed/thin diet per PATTERNMAKER SAMPLE/MD given poor intake hx; encourage PO 2. Ensure Enlive TIDWM; pending MD verification in EMR 3. routine bowel care; 7 days constipation 4. scaled wt this admit; subsequent weekly wts Addendum: 11/08/20 at [address] Amended: Links added.
[2020-11-08] MEDS ORDERED: lactulose 20gm/30ml cup PO ONE (17:50)
[2020-11-08] MEDS: lactose-reduced food (Ensure Enlive) - 237ml bottle PO SCH (18:00)
--- NOTE | 2020-11-08 19:04 | NUR ---
Report given to Terence, all questions answered. Pt doing well, in bed. Alert, oriented although weak.
--- NOTE | 2020-11-08 19:05 | NUR ---
Patient in room [facility] 354. I have received report from Emily AGUIRRE and had the opportunity to ask questions and assume patient care.
[2020-11-08 20:44] VITALS: BP 149/73
[2020-11-08] MEDS: prazosin 1mg capsule PO SCH (21:18)
[2020-11-08] MEDS: QUEtiapine 25mg tablet PO SCH (21:18)
[2020-11-08] MEDS: tamsulosin 0.4mg capsule PO SCH (21:18)
[2020-11-08 23:30] VITALS: BP 121/42
[2020-11-08] MEDS: insulin glargine (Lantus) pen - multi-dose SQ SCH (23:35)
[2020-11-09] MEDS: potassium CL 20mEq in D5-1/2NS 1,000 ML IV SCH ×3 (03:19→20:26)
--- NOTE | 2020-11-09 03:49 | NUR ---
was unable to administer patient's post-dinner insulin in a timely manner. at 2100, patient's blood sugar was 232, but patient did not have orders for lantus. After clarifying that patient was supposed to have lantus and entering the order, treated patient's HS blood glucose per protocol
--- NOTE | 2020-11-09 06:49 | NUR ---
Problems reprioritized. Patient report given, questions answered & plan of care reviewed with Emily AGUIRRE.
[2020-11-09 07:00] VITALS: BP 132/42
[2020-11-09] MEDS: carVEDilol 3.125mg tablet PO SCH ×2 (07:49→20:19)
[2020-11-09] MEDS: docusate sod 100mg capsule PO SCH ×2 (07:49→20:18)
[2020-11-09] MEDS: furosemide 20MG tablet PO SCH (07:49)
[2020-11-09] MEDS: lithium carbonate 150mg capsule PO SCH ×3 (07:50→17:33)
[2020-11-09] MEDS: aspirin 81mg tablet.DR PO SCH (07:50)
[2020-11-09] MEDS: atorvastatin 10mg tablet PO SCH (07:50)
[2020-11-09] MEDS: heparin, porcine 5000 units/ml vial SQ SCH ×2 (07:51→20:18)
[2020-11-09] MEDS: K and/or MAG REPLACEMENT MC SCH ×2 (08:00→20:00)
[2020-11-09] MEDS: lactose-reduced food (Ensure Enlive) - 237ml bottle PO SCH ×3 (08:34→18:55)
[2020-11-09] MEDS: insulin Lispro (HumaLOG) vial - multi-dose SQ SCH ×2 (08:46→20:41)
[2020-11-09 11:00] VITALS: BP_SYST 109; BP_SYST 84; BP_SYST 96; BP_DIAS 41; BP_DIAS 43
--- NOTE | 2020-11-09 14:00 | NUR ---
Dr Meyer notified that patient had dizziness and orthostatic during physical therapy. She says she will look at his meds.
--- NOTE | 2020-11-09 18:53 | NUR ---
Patient in room [facility] 359. I have received report from Emily AGUIRRE and had the opportunity to ask questions and assume patient care.
--- NOTE | 2020-11-09 19:00 | NUR ---
Report given to Terence RN, pt slightly more confused but very pleasant and beginning to be more restless. Watching closely. Terence aware.
[2020-11-09] MEDS: ziprasidone IM 20mg inj **IM only IM PRN (19:24)
--- NOTE | 2020-11-09 19:33 | NUR ---
Unable to complete orthostatic vitals, due to administration of GEODON IM per orders, patient was restless, agitated, and repeatedly attempted to get out of bed while being a major fall risk. Addendum: 11/10/20 at 0534 by Terence Rodgers RN Amended: Links added.
[2020-11-09] MEDS: tamsulosin 0.4mg capsule PO SCH (20:18)
[2020-11-09] MEDS: prazosin 1mg capsule PO SCH (20:18)
[2020-11-09] MEDS: QUEtiapine 25mg tablet PO SCH (20:19)
--- NOTE | 2020-11-09 20:27 | NUR ---
Unable to treat patient's Dinner time blood sugar on time due to lack of staffing. received an admission at 1900, had to provide incontinence care for another patient, and had to administer Geodon to this patient due to increased restlessness and agitation. Treated Patient's HS blood sugar per protocol.
[2020-11-09 20:30] VITALS: BP 133/50
[2020-11-09] MEDS: insulin glargine (Lantus) pen - multi-dose SQ SCH (20:40)
[2020-11-09 23:30] VITALS: BP 128/56
--- NOTE | 2020-11-10 06:58 | NUR ---
Problems reprioritized. Patient report given, questions answered & plan of care reviewed with Sharif AGUIRRE.
[2020-11-10 08:00] VITALS: BP 128/50
[2020-11-10] MEDS: K and/or MAG REPLACEMENT MC SCH ×2 (08:00→20:00)
[2020-11-10] MEDS: lactose-reduced food (Ensure Enlive) - 237ml bottle PO SCH ×3 (08:00→18:00)
[2020-11-10] MEDS: heparin, porcine 5000 units/ml vial SQ SCH ×2 (08:00→20:07)
[2020-11-10] MEDS: carVEDilol 3.125mg tablet PO SCH ×2 (08:00→20:06)
[2020-11-10] MEDS: docusate sod 100mg capsule PO SCH ×2 (09:22→20:06)
[2020-11-10] MEDS: aspirin 81mg tablet.DR PO SCH (09:22)
[2020-11-10] MEDS: atorvastatin 10mg tablet PO SCH (09:22)
[2020-11-10] MEDS: furosemide 20MG tablet PO SCH (09:22)
[2020-11-10] MEDS: lithium carbonate 150mg capsule PO SCH ×3 (09:22→20:06)
[2020-11-10 11:16] VITALS: BP 128/50
[2020-11-10] MEDS: potassium CL 20mEq in D5-1/2NS 1,000 ML IV SCH (13:40)
[2020-11-10 14:10] VITALS: BP_SYST 128; BP_SYST 88; BP_DIAS 35; BP_DIAS 42; BP_DIAS 49
[2020-11-10 14:11] VITALS: BP 108/47
[2020-11-10] MEDS: normal saline 1000ml 1,000 ML IV SCH (17:18)
[2020-11-10 18:30] VITALS: BP 112/50
--- NOTE | 2020-11-10 18:32 | NUR ---
Patient in room [facility] 359. I have received report from Sharif AGUIRRE and had the opportunity to ask questions and assume patient care.
[2020-11-10] MEDS: prazosin 1mg capsule PO SCH (20:09)
[2020-11-10] MEDS: tamsulosin 0.4mg capsule PO SCH (20:09)
[2020-11-10] MEDS: QUEtiapine 25mg tablet PO SCH (20:09)
[2020-11-10] MEDS: insulin glargine (Lantus) pen - multi-dose SQ SCH (21:00)
[2020-11-11] MEDS: normal saline 1000ml 1,000 ML IV SCH ×2 (04:37→12:48)
--- NOTE | 2020-11-11 06:17 | NUR ---
unable to assess Addendum: 11/11/20 at 0618 by Terence Rodgers RN Amended: Links added.
--- NOTE | 2020-11-11 06:49 | NUR ---
Pt. found to have pulled his IV out at beginning of shift.
[2020-11-11 07:00] VITALS: BP 145/61
[2020-11-11] MEDS: aspirin 81mg tablet.DR PO SCH (07:27)
[2020-11-11] MEDS: docusate sod 100mg capsule PO SCH ×2 (07:27→19:14)
[2020-11-11] MEDS: atorvastatin 10mg tablet PO SCH (07:27)
[2020-11-11] MEDS: furosemide 20MG tablet PO SCH (07:28)
[2020-11-11] MEDS: lactose-reduced food (Ensure Enlive) - 237ml bottle PO SCH ×3 (07:28→17:54)
[2020-11-11] MEDS: heparin, porcine 5000 units/ml vial SQ SCH ×2 (07:28→19:14)
[2020-11-11] MEDS: lithium carbonate 150mg capsule PO SCH ×3 (07:28→17:19)
[2020-11-11] MEDS: acetaminophen 325mg tablet PO PRN ×2 (07:28→17:19)
[2020-11-11] MEDS: carVEDilol 3.125mg tablet PO SCH ×2 (07:29→19:14)
[2020-11-11] MEDS: K and/or MAG REPLACEMENT MC SCH ×2 (07:31→19:30)
--- NOTE | 2020-11-11 08:09 | NUR ---
Pt. restarted on protocol r/t not being covered with insulin last night.
[2020-11-11 08:36] LABS: BASOPHILS % (AUTO) 0.5 % (0-1); EOSINOPHILS # (AUTO) 0.1 X10'3 (0-0.9); EOSINOPHILS % (AUTO) 3.2 % (0-6); HEMATOCRIT 33.9 % (42.0-52.0); HEMOGLOBIN 10.8 g/dl (14.0-17.9); LYMPHOCYTES # (AUTO) 0.5 X10'3 (1.1-4.8); MEAN CORPUSCULAR HEMOGLOBIN 25.8 PG (27.0-31.0); MEAN CORPUSCULAR HGB CONC 31.9 g/dL (33.0-36.5); MEAN CORPUSCULAR VOLUME 80.8 FL (78-98); MEAN PLATELET VOLUME 8.5 FL (7.4-10.4); MONOCYTES # (AUTO) 0.3 X10'3 (0-0.9); MONOCYTES % (AUTO) 9.2 % (2-12); NEUTROPHILS # (AUTO) 2.2 X10'3 (1.8-7.7); NEUTROPHILS % (AUTO) 70.1 % (42-75); PLATELET COUNT 169 X10'3 (140-440); RED CELL DISTRIBUTION WIDTH 18.2 % (11.5-14.5); WHITE BLOOD COUNT 3.1 X10'3 (4.5-11.0)
[2020-11-11] MEDS: insulin Lispro (HumaLOG) vial - multi-dose SQ SCH ×3 (08:57→19:17)
--- NOTE | 2020-11-11 11:00 | NUR ---
Dr Dennison aware of patients Positive Orthostatics today, Dr Dennison would like to continue patients IV fluids for another 24 hours and re-evaluate orthostatics in am. Also, Dr Dennison would like us to encourage fluids to patient.Primary RN Sierra flores
[2020-11-11 11:39] VITALS: BP 129/54
--- NOTE | 2020-11-11 13:03 | NUR ---
F/u 11/11: Pt PO continues to slowly improve past 3 days ~50-75% avg meals w/ overall 50-75% ONS though 25% ensure this AM. Currently meeting minimum estimated needs. LBM 11/08 receiving routine colace w/ PRN MoM and dulcolax available. Will continue to monitor. Rec: 1. liberalize to regular/pureed/thin diet per EXTENSION SERVICE AGENT/MD given age and prior PO hx if MD Agreeable; encourage PO 2. Ensure Enlive TIDWM 3. routine bowel care 4. scaled wt this admit; subsequent weekly wts Addendum: 11/11/20 at [address] Amended: Links added.
[2020-11-11] MEDS: magnesium hydroxide 30ml (MOM) UD suspension PO PRN (17:19)
[2020-11-11 18:00] VITALS: BP 154/46
--- NOTE | 2020-11-11 18:19 | NUR ---
Problems reprioritized. Patient report given, questions answered & plan of care reviewed with Doris AGUIRRE.
--- NOTE | 2020-11-11 18:50 | NUR ---
Patient found to have IV pulled out and blood oozing out all over his abdomen and bed at beginning of shift. Cleaned up patient, applied gauze and tape over IV site. Patient denies any pain, discomfort or dizziness. Will continue to monitor.
[2020-11-11 20:00] VITALS: BP_SYST 154; BP_SYST 98; BP_DIAS 46; BP_DIAS 51
--- NOTE | 2020-11-11 22:00 | NUR ---
Patient's BG level 81 mg/dL. Will not administer night time dose of Lantus per protocol due to blood sugar being that low. Will continue to monitor.
[2020-11-11] MEDS: prazosin 1mg capsule PO SCH (22:01)
[2020-11-11] MEDS: tamsulosin 0.4mg capsule PO SCH (22:01)
[2020-11-11] MEDS: QUEtiapine 25mg tablet PO SCH (22:01)
[2020-11-11] MEDS: insulin glargine (Lantus) pen - multi-dose SQ SCH (22:04)
[2020-11-12] VITALS (8 sets, daily range): BP systolic 109–164; BP diastolic 45–84
[2020-11-12] MEDS: normal saline 1000ml 1,000 ML IV SCH ×3 (01:21→22:04)
[2020-11-12] MEDS: LORazepam 2 mg/ml vial IV PRN ×3 (04:31→21:55)
[2020-11-12] MEDS: aspirin 81mg tablet.DR PO SCH (07:45)
[2020-11-12] MEDS: magnesium hydroxide 30ml (MOM) UD suspension PO PRN (07:45)
[2020-11-12] MEDS: lithium carbonate 150mg capsule PO SCH ×3 (07:46→17:10)
[2020-11-12] MEDS: docusate sod 100mg capsule PO SCH ×2 (07:46→19:53)
[2020-11-12] MEDS: acetaminophen 325mg tablet PO PRN (07:46)
[2020-11-12] MEDS: furosemide 20MG tablet PO SCH (07:46)
[2020-11-12] MEDS: atorvastatin 10mg tablet PO SCH (07:46)
[2020-11-12] MEDS: lactose-reduced food (Ensure Enlive) - 237ml bottle PO SCH ×3 (07:46→18:01)
[2020-11-12] MEDS: heparin, porcine 5000 units/ml vial SQ SCH ×2 (07:47→19:53)
[2020-11-12] MEDS: K and/or MAG REPLACEMENT MC SCH ×2 (07:47→20:00)
[2020-11-12] MEDS: carVEDilol 3.125mg tablet PO SCH ×2 (07:47→19:53)
--- NOTE | 2020-11-12 08:00 | NUR ---
Protocol restarted r/t no insulin administered last night.
--- NOTE | 2020-11-12 11:18 | NUR ---
PAGER ID: [phone] MESSAGE: Bryan Dia 359A Orthostatic BPs complete. Please note low HR in 40s while supine. Thank you. Sierra [phone]
[2020-11-12] MEDS: insulin Lispro (HumaLOG) vial - multi-dose SQ SCH ×3 (13:00→22:01)
--- NOTE | 2020-11-12 18:25 | NUR ---
Patient in room [facility] 359A. I have received report from TIMOTHY Esquivel and had the opportunity to ask questions and assume patient care.
[2020-11-12] MEDS: prazosin 1mg capsule PO SCH (20:00)
[2020-11-12] MEDS: QUEtiapine 25mg tablet PO SCH (20:00)
[2020-11-12] MEDS: tamsulosin 0.4mg capsule PO SCH (20:00)
[2020-11-13] VITALS: BP 148/95
[2020-11-13] MEDS: normal saline 1000ml 1,000 ML IV SCH ×2 (04:45→08:08)
--- NOTE | 2020-11-13 06:11 | NUR ---
Problems reprioritized. Patient report given, questions answered & plan of care reviewed with TIMOTHY Diaz.
[2020-11-13 08:00] VITALS: BP 144/61
[2020-11-13] MEDS: K and/or MAG REPLACEMENT MC SCH ×2 (08:00→20:00)
[2020-11-13] MEDS: insulin Lispro (HumaLOG) vial - multi-dose SQ SCH ×3 (08:53→19:23)
[2020-11-13] MEDS: aspirin 81mg tablet.DR PO SCH (08:54)
[2020-11-13] MEDS: atorvastatin 10mg tablet PO SCH (08:54)
[2020-11-13] MEDS: carVEDilol 3.125mg tablet PO SCH ×2 (08:54→19:14)
[2020-11-13] MEDS: docusate sod 100mg capsule PO SCH ×2 (08:54→19:15)
[2020-11-13] MEDS: lactose-reduced food (Ensure Enlive) - 237ml bottle PO SCH ×3 (08:55→18:47)
[2020-11-13] MEDS: lithium carbonate 150mg capsule PO SCH ×3 (08:55→17:42)
[2020-11-13] MEDS: heparin, porcine 5000 units/ml vial SQ SCH ×2 (08:56→19:14)
[2020-11-13 11:00] VITALS: BP 139/50
[2020-11-13 14:15] VITALS: BP_SYST 103; BP_SYST 127; BP_SYST 140; BP_DIAS 49; BP_DIAS 65
[2020-11-13 18:00] VITALS: BP 134/71
--- NOTE | 2020-11-13 18:22 | NUR ---
Patient in room [facility] 359A. I have received report from TIMOTHY Diaz and had the opportunity to ask questions and assume patient care.
--- NOTE | 2020-11-13 18:51 | NUR ---
REPORT GIVEN TO CATIE AGUIRRE, ALL QUESTIONS ANSWERED. NO CURRENT CONCERNS. PATIENT SINGING IN ROOM.
[2020-11-13] MEDS: QUEtiapine 25mg tablet PO SCH (21:31)
[2020-11-13] MEDS: prazosin 1mg capsule PO SCH (21:31)
[2020-11-13] MEDS: LORazepam 2 mg/ml vial IV PRN (21:31)
[2020-11-13] MEDS: tamsulosin 0.4mg capsule PO SCH (21:31)
[2020-11-14] VITALS: BP 141/65
[2020-11-14] MEDS: magnesium hydroxide 30ml (MOM) UD suspension PO PRN (01:47)
[2020-11-14] MEDS: acetaminophen 325mg tablet PO PRN (01:47)
--- NOTE | 2020-11-14 06:30 | NUR ---
Problems reprioritized. Patient report given, questions answered & plan of care reviewed with TIMOTHY Carter.
--- NOTE | 2020-11-14 07:12 | NUR ---
Patient in room [facility] 359. I have received report from chayito AGUIRRE and had the opportunity to ask questions and assume patient care.
[2020-11-14 08:00] VITALS: BP 123/41
[2020-11-14] MEDS: K and/or MAG REPLACEMENT MC SCH (08:00)
[2020-11-14] MEDS: docusate sod 100mg capsule PO SCH (08:27)
[2020-11-14] MEDS: carVEDilol 3.125mg tablet PO SCH (08:27)
[2020-11-14] MEDS: aspirin 81mg tablet.DR PO SCH (08:27)
[2020-11-14] MEDS: atorvastatin 10mg tablet PO SCH (08:27)
[2020-11-14] MEDS: lithium carbonate 150mg capsule PO SCH ×2 (08:28→13:38)
[2020-11-14] MEDS: heparin, porcine 5000 units/ml vial SQ SCH (08:28)
[2020-11-14] MEDS: lactose-reduced food (Ensure Enlive) - 237ml bottle PO SCH ×2 (09:00→13:00)
[2020-11-14] MEDS: insulin Lispro (HumaLOG) vial - multi-dose SQ SCH ×2 (09:07→13:47)
[2020-11-14 12:38] VITALS: BP 114/55
--- NOTE | 2020-11-14 15:45 | NUR ---
patient incontinent x4 alert and orientated x2 . clarification made with dr li with regards dosage of lithium 150mg Tid . report called to Faustina AGUIRRE. orthostatic positive with PRASANNA hose in place . patient transferred to [facility] 1530hrs.in stable condition.
== END 2020-11-14 15:40 | DRG 71 ==
LOC: ER 21:13 → ED HOLD 10-27 02:59 → SUR 3N 10-27 03:50
PROVIDERS: ADMIT Internal Medicine; ATTEND Family Medicine
DX: G93.41 Metabolic encephalopathy (principal); N17.9 Acute kidney failure, unspecified; F03.90 Unspecified dementia, unspecified severity, without behavioral disturbance, psychotic disturbance, mood disturbance, and anxiety; E78.00 Pure hypercholesterolemia, unspecified; E78.5 Hyperlipidemia, unspecified; F31.9 Bipolar disorder, unspecified; F41.9 Anxiety disorder, unspecified; G89.29 Other chronic pain; I10 Essential (primary) hypertension; I25.10 Atherosclerotic heart disease of native coronary artery without angina pectoris; Z66 Do not resuscitate; E87.5 Hyperkalemia; F44.81 Dissociative identity disorder; R35.0 Frequency of micturition; D72.829 Elevated white blood cell count, unspecified; K21.9 Gastro-esophageal reflux disease without esophagitis; R13.10 Dysphagia, unspecified; R25.1 Tremor, unspecified; I65.21 Occlusion and stenosis of right carotid artery; R29.6 Repeated falls; W18.39XA Other fall on same level, initial encounter; E11.40 Type 2 diabetes mellitus with diabetic neuropathy, unspecified; I95.1 Orthostatic hypotension; K59.00 Constipation, unspecified; N40.1 Benign prostatic hyperplasia with lower urinary tract symptoms; Z79.82 Long term (current) use of aspirin; Z79.899 Other long term (current) drug therapy; Z87.891 Personal history of nicotine dependence; Z28.21 Immunization not carried out because of patient refusal; Z95.1 Presence of aortocoronary bypass graft; I25.2 Old myocardial infarction; Z90.49 Acquired absence of other specified parts of digestive tract; Y93.89 Activity, other specified; Y92.89 Other specified places as the place of occurrence of the external cause; Y99.8 Other external cause status
CPT/HCPCS: 36415; 70450; 70544; 70551; 71045; 74018; 74230; 80053; 80178; 81003; 82140; 82607; 82948; 83036; 83735; 84100; 84132; 84145; 84443; 85008; 85025; 87081; 90732; 92508; 93005; 93306; 93882; 97110; 97116; 97161; 97530; 97535; 99285; G0378; J1644; J1815; J2060; J2270; J3480; J3486; J7030

== ENCOUNTER 2020-12-01 10:12 | Emergency (ER) | payer MEDICARE, MEDICAID ==
[~2020-12-01] VITALS: Ht 182.9 cm; Wt 90.9 kg
[~2020-12-01 10:12] MED LIST changes: -AMI25T PO; +AMIT10TA6 PO; -ATEN-27 PO; +ATOR10TA70 PO; -BAC10T PO; +CARV3.122 PO; +DOCU-345 PO; +FLO0.4C PO; -FURO-150 PO; +FURO20TA4 PO; +GABA-530 PO; -GABA-532 PO; -GLIP10TA11 PO; -GLU850T PO; +HYDR-3686 PO; -INSU100V9 SQ; -KEN0.1O TP; -LACT1CAP26 PO; +LITH300C PO; -LITH300T5 PO; +MECL-159 PO; -MECL12.5 PO; +NAPR-996 PO; -NITR0.4T48 SL; -OMEP-84 PO; -POLY255P19 PO; +PRAZ1CAP5 PO; -ROSU10TA2 PO; -SENN1TAB9 PO; +SITA100T15 PO; -TRAZ50TA54 PO
[2020-12-01 12:17] LABS: EOSINOPHILS # (AUTO) 0.1 X10'3 (0-0.9); HEMOGLOBIN 10.2 g/dl (14.0-17.9); MEAN PLATELET VOLUME 7.7 FL (7.4-10.4); NEUTROPHILS # (AUTO) 2.7 X10'3 (1.8-7.7)
[2020-12-01 12:19] LABS: BASOPHILS % (AUTO) 0.3 % (0-1); EOSINOPHILS % (AUTO) 3.3 % (0-6); HEMATOCRIT 31.5 % (42.0-52.0); LYMPHOCYTES # (AUTO) 0.8 X10'3 (1.1-4.8); LYMPHOCYTES % (AUTO) 20.4 % (21-51); MEAN CORPUSCULAR HEMOGLOBIN 26.1 PG (27.0-31.0); MEAN CORPUSCULAR HGB CONC 32.2 g/dL (33.0-36.5); MONOCYTES # (AUTO) 0.4 X10'3 (0-0.9); PLATELET COUNT 195 X10'3 (140-440); RED BLOOD COUNT 3.89 X10'6 (4.70-6.10); RED CELL DISTRIBUTION WIDTH 18.5 % (11.5-14.5); WHITE BLOOD COUNT 4.1 X10'3 (4.5-11.0)
[2020-12-01 12:29] LABS: ALANINE AMINOTRANSFERASE 15 U/L (12-78); ALBUMIN 2.4 G/DL (3.4-5.0); ALBUMIN/GLOBULIN RATIO 0.6 (1.1-1.5); ALKALINE PHOSPHATASE 133 IU/L (46-116); ANION GAP 5 (8-16); ASPARTATE AMINO TRANSFERASE 16 U/L (10-37); BILIRUBIN,TOTAL 0.3 MG/DL (0.1-1.0); BLOOD UREA NITROGEN 12 MG/DL (7-18); BUN/CREATININE RATIO 9.2 (5.4-32.0); CALCIUM 8.3 MG/DL (8.5-10.1); CHLORIDE 105 MMOL/L (99-107); CREATININE 1.31 MG/DL (0.60-1.10); GLUCOSE 186 MG/DL (70-104); POTASSIUM 4.2 MMOL/L (3.5-5.1); SODIUM 140 MMOL/L (135-145); TOTAL CARBON DIOXIDE 30.2 MMOL/L (24-32); TOTAL PROTEIN 6.4 G/DL (6.4-8.2); eGFR 53 ML/MIN
[2020-12-01 13:16] LABS: CLARITY,URINE CLEAR (Clear); COLOR,URINE YELLOW (Yellow); GLUCOSE, URINE NEGATIVE (Neg); KETONES,URINE NEGATIVE (Neg); LEUKOCYTE ESTERASE ,URINE SMALL (Neg); NITRITES, URINE NEGATIVE (Neg); OCCULT BLOOD,URINE NEGATIVE (Neg); PROTEIN,URINE NEGATIVE (Neg)
[2020-12-01 13:22] LABS: BACTERIA,URINE 2+ /HPF (Neg); RBC,URINE NONE SEEN /HPF (0-2); UA COLLECTION TYPE CLN CATCH MIDSTREAM
[2020-12-01 13:23] LABS: MUCUS STRANDS FEW /LPF (Neg); SQUAMOUS EPITHELIAL CELL,UR NONE SEEN /LPF (FEW)
[2020-12-01 14:17] VITALS: BP 155/59
== END 2020-12-01 14:17 | disposition home or self-care (01) ==
LOC: ER 10:12
DX: S09.90XA Unspecified injury of head, initial encounter (principal); M25.552 Pain in left hip; F03.90 Unspecified dementia, unspecified severity, without behavioral disturbance, psychotic disturbance, mood disturbance, and anxiety; I25.10 Atherosclerotic heart disease of native coronary artery without angina pectoris; E78.00 Pure hypercholesterolemia, unspecified; I10 Essential (primary) hypertension; I25.2 Old myocardial infarction; K21.9 Gastro-esophageal reflux disease without esophagitis; E11.9 Type 2 diabetes mellitus without complications; G89.29 Other chronic pain; F31.9 Bipolar disorder, unspecified; Z90.49 Acquired absence of other specified parts of digestive tract; Z98.890 Other specified postprocedural states; Z60.2 Problems related to living alone; Z79.82 Long term (current) use of aspirin; Z79.899 Other long term (current) drug therapy; W19.XXXA Unspecified fall, initial encounter; Y93.89 Activity, other specified; Y92.89 Other specified places as the place of occurrence of the external cause; Y99.8 Other external cause status
CPT/HCPCS: 36415; 70450; 71045; 72125; 73502; 73700; 80053; 81001; 85025; 87077; 87088; 87186; 93005; 99285

== ENCOUNTER 2021-01-26 06:22 | Emergency (ER) | payer MEDICARE, MEDICAID ==
[~2021-01-26] VITALS: Ht 170.2 cm; Wt 56.0 kg
--- NOTE | 2021-01-26 07:19 | NUR ---
Left a message to Kaveh/son for patient's transport.
--- NOTE | 2021-01-26 07:29 | NUR ---
Pt. was awake upon entering room, no pain present, call light within reach. No needs at this time.
--- NOTE | 2021-01-26 07:29 | NUR ---
Left a message to Kaveh/son, [phone]. Also called home number [phone] and left a message.
--- NOTE | 2021-01-26 07:32 | NUR ---
requested breakfast tray.
--- NOTE | 2021-01-26 08:30 | NUR ---
Spoke to Case management, got multiple phone numbers and contacts. Message left for Enmanuel pt caregiver. Attempted to contact Ruth who had a disconnected phone number.
--- NOTE | 2021-01-26 08:35 | NUR ---
Spoke to Shania, who states she will go to pt's home to see if door is unlocked.
--- NOTE | 2021-01-26 09:17 | NUR ---
Shania returned call. Unable to go to pt's home, however she spoke to Enmanuel who is attempting to reach out to multiple others to attempt to get someone to stay with pt at his home.
--- NOTE | 2021-01-26 14:49 | NUR ---
pt changed and repositioned.still awaiting for transport.
--- NOTE | 2021-01-26 16:08 | NUR ---
UNABLE TO GET A HOLD OF POA PER CM.
--- NOTE | 2021-01-26 16:09 | NUR ---
CHANGED AND REPOSITIONED PATIENT.USES CALL LIGHT APPROPRIATELY.
--- NOTE | 2021-01-26 17:16 | NUR ---
POA: Star Raymond [phone]
[2021-01-26] MEDS ORDERED: INSU100I29 SQ (18:44)
--- NOTE | 2021-01-27 07:29 | NUR ---
first contact with pt, pt is resting quietly on hospital bed, alert and oriented to person, place, he does not know the year, skin p/w/d, gave pt water, iglesia well, no n/v
--- NOTE | 2021-01-27 08:30 | NUR ---
pt ate all his breakfast, iglesia well, no n/v
--- NOTE | 2021-01-27 11:24 | NUR ---
pt has ambulated with walker and surgical technician around ER,
--- NOTE | 2021-01-27 12:01 | NUR ---
PT'S SON AND POA HAS BEEN CALLED AND MESSAGES LEFT INFORMING THAT PT IS AWAITING TRANSPORTATION HOME. NURSING MEDICAL RECORDS DIRECTOR HAS BEEN NOTIFIED AND INFORMED CHG RN THAT APS AND HOSPITAL JR. JAVA DEVELOPER HAS BEEN NOTIFIED.
--- NOTE | 2021-01-27 12:15 | NUR ---
CHARGE NURSE HAS ATTEMPTED TO CALL FAMILY AGAIN, NO ANSWER, PT IS SITTING IN HALLWAY, EATING A SNACK OF JELLO AND CRACKERS, DEE WELL, NO N/V
--- NOTE | 2021-01-27 13:34 | NUR ---
I WALKED WITH PT OUTSIDE, AMB WITHOUT ASSIST USING WALKER, PT ALSO SAID HE PAYS HIS CAREGIVER $900 A MONTH TO HELP HIM. MEDICARE CONTACT SPECIALIST SAID PT HAS BEEN ACCEPTED AT [facility] AND WILL BE LEAVING TOMORROW
--- NOTE | 2021-01-27 15:52 | NUR ---
pt is constantly walking around ER with his walker, has had 2 very large, soft, formed, brown bowel movements. ER techs have assisted pt with ADLs, pt is calm, cooperative, pleasant
--- NOTE | 2021-01-27 16:33 | NUR ---
Patient has been accepted by [facility], notified primary nurse, plan for possible d/c 01/28/21
[2021-01-27] MEDS ORDERED: naproxen 500mg tablet PO PRN (19:35)
[2021-01-27] MEDS ORDERED: meclizine 12.5mg tablet PO PRN (19:35)
[2021-01-27] MEDS: carVEDilol 3.125mg tablet PO SCH (20:46)
[2021-01-27] MEDS: docusate sod 100mg capsule PO SCH (20:46)
[2021-01-27] MEDS: metoclopramide 10mg tablet PO SCH (20:52)
[2021-01-27] MEDS: gabapentin 300mg capsule PO SCH (20:54)
[2021-01-27] MEDS ORDERED: amitriptyline 10mg tablet PO SCH (21:00)
[2021-01-27] MEDS ORDERED: tamsulosin 0.4mg capsule PO SCH (21:00)
[2021-01-27] MEDS ORDERED: prazosin 1mg capsule PO SCH (21:00)
[2021-01-27] MEDS ORDERED: hydrOXYzine 25 MG tablet PO SCH (21:00)
[2021-01-27] MEDS: lithium carbonate 150mg capsule PO SCH (21:43)
--- NOTE | 2021-01-28 00:44 | NUR ---
PT REPEATEDLY UP AND DOWN OUT OF BED, WALKING TO NURSES STATION. PT STATES HE SEES ANTS CRAWLING ON FLOOR, NO ANTS VISIBLY SEEN
[2021-01-28] MEDS ORDERED: insulin glargine (Lantus) pen - multi-dose SQ SCH (08:00)
[2021-01-28] MEDS ORDERED: aspirin 81mg, enteric-coated 1 TAB TABLET.DR PO SCH (08:00)
[2021-01-28] MEDS ORDERED: atorvastatin 10mg tablet PO SCH (08:00)
[2021-01-28] MEDS: carVEDilol 3.125mg tablet PO SCH (08:00)
[2021-01-28] MEDS ORDERED: furosemide 20MG tablet PO SCH (08:00)
[2021-01-28] MEDS ORDERED: linagliptin 5mg tablet PO SCH (08:00)
[2021-01-28] MEDS: gabapentin 300mg capsule PO SCH ×2 (08:35→13:18)
[2021-01-28] MEDS: metoclopramide 10mg tablet PO SCH ×2 (08:35→13:17)
[2021-01-28] MEDS: lithium carbonate 150mg capsule PO SCH ×2 (08:36→13:17)
[2021-01-28] MEDS: docusate sod 100mg capsule PO SCH ×2 (08:37→08:38)
--- NOTE | 2021-01-28 10:09 | NUR ---
Case Management paged re; POC and estimated dc time
--- NOTE | 2021-01-28 11:19 | NUR ---
Report called to [facility] ([phone]). Report called to [facility]
--- NOTE | 2021-01-28 11:53 | NUR ---
REcieved pt this AM resting comfortably in bed. Pt denies complaints, no distress noted.
[2021-01-28 13:30] VITALS: BP 156/64
== END 2021-01-28 13:33 | disposition home or self-care (01) ==
LOC: ER 06:23
DX: Z02.89 Encounter for other administrative examinations (principal); M25.551 Pain in right hip; I25.10 Atherosclerotic heart disease of native coronary artery without angina pectoris; E78.00 Pure hypercholesterolemia, unspecified; I10 Essential (primary) hypertension; I25.2 Old myocardial infarction; K21.9 Gastro-esophageal reflux disease without esophagitis; E11.9 Type 2 diabetes mellitus without complications; G89.29 Other chronic pain; F31.9 Bipolar disorder, unspecified; Z90.49 Acquired absence of other specified parts of digestive tract; Z98.890 Other specified postprocedural states; Z60.2 Problems related to living alone; Z79.82 Long term (current) use of aspirin; Z79.899 Other long term (current) drug therapy; W19.XXXA Unspecified fall, initial encounter; Y93.89 Activity, other specified; Y92.89 Other specified places as the place of occurrence of the external cause; Y99.8 Other external cause status
CPT/HCPCS: 82948; 99285; J8597; Q0177

== ENCOUNTER 2021-02-09 14:42 | Emergency (ER) | payer MEDICARE, MEDICAID ==
[~2021-02-09] VITALS: Ht 177.8 cm; Wt 70.0 kg
[~2021-02-09 14:42] MED LIST changes: +INSU100I29 SQ
[2021-02-09] MEDS ORDERED: iohexol 300mg/ml 100ml inj. ONE (15:30)
[2021-02-09 15:45] LABS: BASOPHILS % (AUTO) 0.3 % (0-1); EOSINOPHILS # (AUTO) 0.2 X10'3 (0-0.9); EOSINOPHILS % (AUTO) 2.8 % (0-6); HEMATOCRIT 35.2 % (42.0-52.0); HEMOGLOBIN 11.2 g/dl (14.0-17.9); LYMPHOCYTES # (AUTO) 0.9 X10'3 (1.1-4.8); LYMPHOCYTES % (AUTO) 12.9 % (21-51); MEAN CORPUSCULAR HEMOGLOBIN 26.3 PG (27.0-31.0); MEAN CORPUSCULAR HGB CONC 31.8 g/dL (33.0-36.5); MEAN CORPUSCULAR VOLUME 82.8 FL (78-98); MEAN PLATELET VOLUME 7.5 FL (7.4-10.4); MONOCYTES # (AUTO) 0.4 X10'3 (0-0.9); MONOCYTES % (AUTO) 6.1 % (2-12); NEUTROPHILS # (AUTO) 5.6 X10'3 (1.8-7.7); NEUTROPHILS % (AUTO) 77.9 % (42-75); PLATELET COUNT 205 X10'3 (140-440); RED BLOOD COUNT 4.25 X10'6 (4.70-6.10); RED CELL DISTRIBUTION WIDTH 17.3 % (11.5-14.5); WHITE BLOOD COUNT 7.2 X10'3 (4.5-11.0)
[2021-02-09 16:01] LABS: ALANINE AMINOTRANSFERASE 18 U/L (12-78); ALBUMIN 2.4 G/DL (3.4-5.0); ALBUMIN/GLOBULIN RATIO 0.5 (1.1-1.5); ALKALINE PHOSPHATASE 168 IU/L (46-116); ANION GAP 9 (8-16); ASPARTATE AMINO TRANSFERASE 21 U/L (10-37); BILIRUBIN,TOTAL 0.2 MG/DL (0.1-1.0); BLOOD UREA NITROGEN 23 MG/DL (7-18); BUN/CREATININE RATIO 20.4 (5.4-32.0); CALCIUM 8.6 MG/DL (8.5-10.1); CHLORIDE 107 MMOL/L (99-107); CREATININE 1.13 MG/DL (0.60-1.10); GLUCOSE 92 MG/DL (70-104); SODIUM 143 MMOL/L (135-145); TOTAL CARBON DIOXIDE 26.7 MMOL/L (24-32); TOTAL PROTEIN 7.2 G/DL (6.4-8.2); eGFR 62 ML/MIN
[2021-02-09 16:09] LABS: BILIRUBIN,DIRECT 0.1 MG/DL (0-0.3); LIPASE < 50 U/L (73-393)
[2021-02-09] MEDS ORDERED: CefTRIAXone/D5W-Rocephin 1gm 50 ML IV ONE (16:50)
[2021-02-09] MEDS ORDERED: AMOX-422 PO (16:54)
[2021-02-09] MEDS ORDERED: amox tr/potassium clavulanate 875/125mg TAB PO ONE (16:55)
[2021-02-09 17:24] VITALS: BP 147/56
== END 2021-02-09 17:58 | disposition home or self-care (01) ==
LOC: ER 14:42
DX: J18.9 Pneumonia, unspecified organism (principal); R29.810 Facial weakness; I25.10 Atherosclerotic heart disease of native coronary artery without angina pectoris; E78.00 Pure hypercholesterolemia, unspecified; I10 Essential (primary) hypertension; I25.2 Old myocardial infarction; K21.9 Gastro-esophageal reflux disease without esophagitis; E11.9 Type 2 diabetes mellitus without complications; G89.29 Other chronic pain; F31.9 Bipolar disorder, unspecified; Z90.49 Acquired absence of other specified parts of digestive tract; Z98.890 Other specified postprocedural states; Z60.2 Problems related to living alone; Z79.2 Long term (current) use of antibiotics; Z79.82 Long term (current) use of aspirin; Z79.4 Long term (current) use of insulin; Z79.899 Other long term (current) drug therapy
CPT/HCPCS: 36415; 70450; 71045; 72125; 72128; 72131; 74177; 80048; 80076; 83690; 84484; 85025; 93005; 99285; Q9967

== ENCOUNTER 2021-02-18 20:49 | Emergency (ER) | payer MEDICARE, MEDICAID ==
[~2021-02-18] VITALS: Ht 182.9 cm; Wt 104.0 kg
[~2021-02-18 20:49] MED LIST changes: +AMOX-422 PO
[2021-02-18 21:28] LABS: BASOPHILS % (AUTO) 0.3 % (0-1); EOSINOPHILS # (AUTO) 0.1 X10'3 (0-0.9); EOSINOPHILS % (AUTO) 2.1 % (0-6); HEMATOCRIT 37.5 % (42.0-52.0); LYMPHOCYTES # (AUTO) 0.5 X10'3 (1.1-4.8); MEAN CORPUSCULAR HEMOGLOBIN 26.4 PG (27.0-31.0); MEAN CORPUSCULAR VOLUME 82.4 FL (78-98); MEAN PLATELET VOLUME 7.4 FL (7.4-10.4); MONOCYTES # (AUTO) 0.3 X10'3 (0-0.9); MONOCYTES % (AUTO) 5.7 % (2-12); NEUTROPHILS # (AUTO) 4.6 X10'3 (1.8-7.7); NEUTROPHILS % (AUTO) 82.9 % (42-75); PLATELET COUNT 205 X10'3 (140-440); RED BLOOD COUNT 4.55 X10'6 (4.70-6.10); WHITE BLOOD COUNT 5.5 X10'3 (4.5-11.0)
[2021-02-18 21:41] LABS: ALANINE AMINOTRANSFERASE 13 U/L (12-78); ALBUMIN 2.6 G/DL (3.4-5.0); ALBUMIN/GLOBULIN RATIO 0.6 (1.1-1.5); ALKALINE PHOSPHATASE 146 IU/L (46-116); ANION GAP 6 (8-16); ASPARTATE AMINO TRANSFERASE 16 U/L (10-37); BILIRUBIN,TOTAL 0.2 MG/DL (0.1-1.0); BLOOD UREA NITROGEN 18 MG/DL (7-18); BUN/CREATININE RATIO 13.5 (5.4-32.0); CHLORIDE 107 MMOL/L (99-107); CREATININE 1.33 MG/DL (0.60-1.10); GLUCOSE 108 MG/DL (70-104); SODIUM 142 MMOL/L (135-145); TOTAL CARBON DIOXIDE 28.7 MMOL/L (24-32); TOTAL PROTEIN 7.1 G/DL (6.4-8.2); eGFR 52 ML/MIN
[2021-02-18 22:29] LABS: ETHANOL < 0.010 GM/DL (0.0-0.010); TROPONIN I < 0.04 NG/ML (0.0-0.05)
[2021-02-19 01:29] LABS: URINE AMPHETAMINE SCREEN NEGATIVE (Neg); URINE BARBITUATE SCREEN NEGATIVE (Neg); URINE BENZODIAZEPINES SCREEN NEGATIVE (Neg); URINE CANNABINOID SCREEN NEGATIVE (Neg); URINE COCAINE SCREEN NEGATIVE (Neg); URINE METHADONE SCREEN NEGATIVE (Neg); URINE OPIATE SCREEN NEGATIVE (Neg); URINE PHENCYCLIDINE SCREEN NEGATIVE (Neg)
[2021-02-19 01:51] LABS: CLARITY,URINE SLIGHTLY CLOUDY (Clear); COLOR,URINE YELLOW (Yellow); GLUCOSE, URINE NEGATIVE (Neg); KETONES,URINE NEGATIVE (Neg); LEUKOCYTE ESTERASE ,URINE NEGATIVE (Neg); NITRITES, URINE NEGATIVE (Neg); OCCULT BLOOD,URINE NEGATIVE (Neg); PROTEIN,URINE NEGATIVE (Neg); UA COLLECTION TYPE STRAIGHT CATH; UROBILINOGEN,URINE 0.2 E.U/dL (0.2-1.0)
[2021-02-19 01:53] LABS: MUCUS STRANDS FEW /LPF (Neg); SQUAMOUS EPITHELIAL CELL,UR FEW /LPF (FEW)
[2021-02-19 01:54] LABS: BACTERIA,URINE FEW /HPF (Neg); RBC,URINE 0-2 /HPF (0-2); WBC,URINE 0-4 /HPF (0-4)
[2021-02-19 03:38] VITALS: BP 114/47
--- NOTE | 2021-02-19 05:00 | NUR ---
CHECKED PT BLOOD SUGAR AND ADVISED DR FIELDS WHO ASKED FOR AN AMP OF D50 TO BE GIVEN PRIOR TO TRANSFER BACK TO FACILITY
[2021-02-19] MEDS ORDERED: dextrose 50%-water 50ml dispensing syringe IV ONE (05:20)
== END 2021-02-19 05:39 ==
LOC: ER 20:49
DX: E11.649 Type 2 diabetes mellitus with hypoglycemia without coma (principal); R41.82 Altered mental status, unspecified; F03.91 Unspecified dementia, unspecified severity, with behavioral disturbance; I25.10 Atherosclerotic heart disease of native coronary artery without angina pectoris; E78.00 Pure hypercholesterolemia, unspecified; I10 Essential (primary) hypertension; I25.2 Old myocardial infarction; K21.9 Gastro-esophageal reflux disease without esophagitis; E11.9 Type 2 diabetes mellitus without complications; G89.29 Other chronic pain; Z90.49 Acquired absence of other specified parts of digestive tract; Z95.5 Presence of coronary angioplasty implant and graft; Z87.448 Personal history of other diseases of urinary system; Z79.82 Long term (current) use of aspirin; Z79.2 Long term (current) use of antibiotics; Z79.899 Other long term (current) drug therapy
CPT/HCPCS: 36415; 71045; 80053; 80305; 80320; 81001; 82140; 82948; 83605; 84484; 85025; 87040; 93005; 96374; 99285